=== PATIENT | female | born 1960 | race Caucasian/White ===

== ENCOUNTER → 2020-03-24 07:18 | Outpatient (CLI) | payer BC, SELFPAY ==
--- NOTE | ~2020-03-24 | XR_ITS ---
XR foot RT min 3V DATE: 03/24/2020 07:55 INDICATION: Foot pain TECHNIQUE: 4 views COMPARISON: None FINDINGS: There is mild osteoarthritis at the first metatarsophalangeal joint. Diffuse osteopenia. No fracture or dislocation, periosteal reaction or bone destruction. No erosive changes. Mild plantar calcaneal enthesopathy. IMPRESSION: Mild plantar calcaneal enthesopathy Mild osteoarthritis at the first metatarsophalangeal joint Osteopenia Reviewed, dictated and finalized at location A.
== END ==
PROVIDERS: PCP Family Medicine; Visit Provider Nurse Practitioner Family
DX: M19.071 Primary osteoarthritis, right ankle and foot (principal); M85.871 Other specified disorders of bone density and structure, right ankle and foot; M77.31 Calcaneal spur, right foot
CPT/HCPCS: 73630

== ENCOUNTER 2020-08-10 18:13 | Emergency (ER) | payer BC, SELFPAY ==
--- NOTE | ~2020-08-10 | CT_ITS ---
EXAMINATION: CT abdomen pelvis w con DATE: 08/10/2020 20:25 INDICATION: Left lower quadrant abdominal pain TECHNIQUE: Computed tomography (CT) of the abdomen and pelvis was performed with 100 mL Omnipaque-350 intravenous contrast. Automated exposure control and iterative reconstruction technique were employe d. The dose-length product was 1032.12 mGy-cm. COMPARISON: 03/14/2016 FINDINGS: Chronic mild atelectasis/scarring at the bilateral lung bases. Arch size is normal. Atherosclerotic c oronary artery calcification. No pericardial or pleural effusion. Liver, gallbladder, spleen, pancrea s, bilateral adrenal glands and kidneys are normal. Bowels including the appendix are normal. Bladder and bilateral adnexa are unremarkable. Unchanged 1.8 cm subserosal fibroid arising from the uterine fundus. No free intraperitoneal gas or fluid. Significant decrease in size of the previously enlarged abdominal and pelvic lymph nodes. The largest remaining lymph node is seen along the right common il iac chain measuring 1.5 x 1.1 cm whereas previously it measured 2.6 x 1.9 cm. No other pathologically enlarged abdominal or pelvic lymphadenopathy. Mild thoracic spondylosis. Stable appearance of chroni c mild anterior wedging at T12 and L1. IMPRESSION: 1. No acute intra-abdominal/pelvic process. 2. Unchanged 1.8 cm uterine fibroid. 3. Interval decrease in prior abdominal and pelvic lymphadenopathy likely representing response to tr eatment of sarcoidosis. Reviewed, dictated and finalized at location A. OPERATOR IMPRESSION: 1. No acute intra-abdominal/pelvic process. 2. Unchanged 1.8 cm uterine fibroid. 3. Interval decrease in prior abdominal and pelvic lymphadenopathy likely repre senting response to treatment of sarcoidosis.
[2020-08-10 18:15] VITALS: BP 132/78; PULSE 72; RESP 18; TEMP 36; O2SAT 99
[2020-08-10 19:00] LABS: Basophils Absolute Auto 0.1 K/mm3 (0.0-0.1); Basophils Percent Auto 0.8 % (0.2-1.2); Eosinophils Absolute Auto 0.1 K/mm3 (0-0.3); Eosinophils Percent Auto 1.1 % (0-4.4); Hematocrit 38.9 % (37.0-47.0); Hemoglobin 12.7 g/dL (12.0-15.0); Immature Granulocyte Absolute 0.02 K/mm3 (0.00-0.031); Immature Granulocyte Percent A 0.3 % (0-0.5); Lymphocytes Absolute Auto 0.88 K/mm3 (0.9-3.2); Lymphocytes Percent Auto 11.1 % (18.3-44.2); Mean Corpuscular HGB Conc 32.6 g/dl (32-36); Mean Corpuscular Hemoglobin 30.1 pg (26-34); Mean Corpuscular Volume 92.2 fl (80-100); Mean Platelet Volume 11.5 fl (7.4-10.4); Monocytes Absolute Auto 0.6 K/mm3 (0.1-0.6); Monocytes Percent Auto 7.8 % (2.6-8.5); Neutrophils Absolute Auto 6.3 K/mm3 (1.3-6.7); Neutrophils Percent Auto 78.9 % (45.5-73.1); Platelet Count Result 232 k/mm3 (150-375); Red Blood Count 4.22 M/mm3 (4.2-5.4)
[2020-08-10 19:05] LABS: Add Urine Microscopic? YES; Appearance Urine Clear (Clear); Bilirubin Urine Negative (Negative); Blood Urine Negative (Negative); Color Urine Yellow (Yellow); Glucose Urine UA Negative (Negative); Ketones Urine Negative (Negative); Leukocyte Esterase Ur Trace LEU/UL (Negative); Mucus Urine Rare /lpf; Nitrate Urine Negative (Negative); Protein Urine Negative (Negative); Specific Grav Ur 1.023 (1.001-1.035); Squamous Epithelial Cell Urine Rare /hpf (Few); Urobilinogen Urine Negative mg/dL (<2.0); WBC Urine 0-3 /hpf
[2020-08-10 19:55] VITALS: BP 103/66; PULSE 70; RESP 20; O2SAT 99
[2020-08-10 20:01] LABS: D Dimer 1.12 ug/mL (<0.48)
[2020-08-10 20:01] LABS: Alanine Aminotransferase 24 U/L (4-35); Albumin Level 4.3 g/dL (3.5-5.1); Alkaline Phosphatase 64 U/L (38-126); Anion Gap 6 mmol/L (8-16); Aspartate Amino Transferase 36 U/L (14-36); Bilirubin,Total 0.5 mg/dL (0.2-1.3); Blood Urea Nitrogen 18 mg/dL (7-17); Calcium 9.8 mg/dL (8.4-10.2); Carbon Dioxide 28 mmol/L (22-30); Chloride 104 mmol/L (98-107); Estimated CRCL calculation 87 ml/min; Estimated Glomerular Filt Rate > 60; Glucose 98 mg/dL (65-105); Lipase 198 U/L (23-300); Potassium 4.7 mmol/L (3.4-5.0); Sodium 138 mmol/L (137-145)
--- NOTE | 2020-08-10 21:21 | ED.ABDPAIN ---
HPI - Abdominal Pain General Chief Complaint: Abdominal Pain Stated Complaint: left sided abd pain Time Seen by Provider: 08/10/20 18:42 Source: patient Mode of arrival: ambulatory Limitations: no limitations History of Present Illness HPI narrative: 60-year-old with a history of sarcoidosis here with complaints of left lower abdominal pain on and off for past 1 week however since yesterday it has been very steady. Pain is mostly dull nagging in nature. She denies any history of nausea, vomiting or altered bowel habits. Denies blood in the urine or in the stool. She also complains of left calf pain. Patient was seen earlier by her primary doctor and was later referred to the ER. MD elicited complaint: abdominal pain Pertinent past history: none Onset (ago): week(s) (1) Pain Consistency: constant Location: LLQ Severity: moderate Quality: aching Radiation: LLQ Migration to: no migration Exacerbating factors: nothing Relieving factors: nothing Related Data Home Medications Medication Instructions Recorded Confirmed azathioprine 08/10/20 prednisone 5 mg tablet 5 mg PO DAILY 08/10/20 08/10/20 Allergies Allergy/AdvReac Type Severity Reaction Status Date / Time Sulfa (Sulfonamide Allergy Unknown Rash Verified 08/10/20 18:38 Antibiotics) Review of Systems Review of Systems: All systems reviewed & are unremarkable except as noted in HPI and below Constitutional: Constitutional: Reports no additional constitutional complaints Eyes: Eyes: Reports no additional eye complaints ENT: Reports system reviewed and no additional complaints, except as documented Cardiovascular: Cardiovascular: Reports no additional cardiovascular complaints Respiratory: Respiratory: Reports no additional respiratory complaints Gastrointestinal: Gastrointestinal: Reports as per HPI Musculoskeletal: Musculoskeletal: Reports other (Left leg pain) PMFSH Past Medical History Medical History BMI 36.0-36.9,adult Family History Family History Father Hypertension Mother Family history of lung cancer Daughter No problems noted. Son No problems noted. Other Family history of throat cancer Social History Social History Smoking status: Never smoker Alcohol intake: current Gender identity (if verbalized by the patient): Male Exam Narrative: Exam Narrative: GENERAL: Well-appearing, well-nourished, and in no acute distress. HEAD: Normocephalic, atraumatic. EYES: PERRLA and EOMI. NECK: Supple. CHEST: Clear to auscultation. No respiratory distress. HEART: Regular rate and rhythm. No murmur heard. Normal peripheral pulses. ABDOMEN: Soft, mild tenderness in the LLQ, nondistended, normal active bowel sounds. EXTREMITIES: Normal range of motion. mild edema of the left calf , no redness mild tenderness on palaption SKIN: Warm, dry, no rash. NEURO: No focal deficits. Alert and oriented x3. PSYCH: Normal mood and affect. Course Course Emergency Course: Inform patient about her lab work, CT findings advised her to return to the radiology department in the morning for a venous Doppler. Meanwhile I will give her Lovenox as DVT prophylaxis. Vital Signs Vital signs: Vital Signs Temperature 36.0 C L 08/10/20 18:15 Pulse Rate 72 08/10/20 18:15 Respiratory Rate 18 08/10/20 18:15 Blood Pressure 132/78 08/10/20 18:15 Pulse Oximetry 99 08/10/20 18:15 Temperature 36.0 C L 08/10/20 18:15 Pulse Rate 70 08/10/20 19:55 Respiratory Rate 20 08/10/20 19:55 Blood Pressure 103/66 08/10/20 19:55 Pulse Oximetry 99 08/10/20 19:55 MDM - Abdominal Pain Lab Data Result diagrams: 08/10/20 18:52 08/10/20 19:12 Labs: Lab Results 08/10/20 08/10/20 08/10/20 Range/Units 18:52 18:52 19:12 WBC
[2020-08-10 21:46] VITALS: BP 112/49; PULSE 80; RESP 19; O2SAT 98
== END 2020-08-10 21:48 | disposition home or self-care (01) ==
PROVIDERS: Emergency Medicine; Emergency Provider Family Medicine; PCP Family Medicine
DX: R10.824 Left lower quadrant rebound abdominal tenderness (principal); R60.0 Localized edema; D25.9 Leiomyoma of uterus, unspecified
CPT/HCPCS: 36415; 74177; 80053; 81001; 83690; 85025; 85380; 96372; 99284; Q9967

== ENCOUNTER 2020-08-11 15:28 | Outpatient (CLI) | payer BC, SELFPAY ==
--- NOTE | ~2020-08-11 | US_ITS ---
EXAMINATION: US venous doppler [facility] DATE: 08/11/2020 16:19 INDICATION: Left lower limb pain TECHNIQUE: Grayscale ultrasound images without and with compression and Doppler ultrasound images of the bilateral lower extremity veins were obtained. COMPARISON: None. FINDINGS: The visualized portions of right common femoral vein, profunda (deep) femoral vein, femoral vein, pop liteal vein, posterior tibial veins, peroneal veins, gastrocnemius vein and greater saphenous vein ou tflow are patent. The visualized portions of left common femoral vein, profunda femoral vein, femoral vein, popliteal v ein, posterior tibial veins, peroneal veins, gastrocnemius vein and greater saphenous vein outflow ar e patent. IMPRESSION: 1. No deep venous thrombosis in either lower limb. Reviewed, dictated and finalized at location A. N LABEL DESIGNER
== END 2020-08-11 15:29 | disposition home or self-care (01) ==
LOC: ANHIMG 15:30
PROVIDERS: PCP Family Medicine; Visit Provider Nurse Practitioner Family
DX: R60.0 Localized edema (principal)
CPT/HCPCS: 93970

== ENCOUNTER 2020-08-17 07:09 | Outpatient (CLI) | payer BC, SELFPAY ==
[2020-08-17 07:51] LABS: Cholesterol 189 mg/dL (0-200); HDL Direct 69 mg/dL; Triglycerides 69 mg/dL (<150)
[2020-08-17 08:01] LABS: LDL Cholesterol Direct 94 mg/dL
[2020-08-17 08:52] LABS: Vitamin D 25 Hydroxy 48.5 ng/mL
== END 2020-08-17 07:10 | disposition home or self-care (01) ==
LOC: ANHLAB 07:12
PROVIDERS: PCP Family Medicine; Visit Provider Nurse Practitioner Family
DX: R53.83 Other fatigue (principal); Z13.220 Encounter for screening for lipoid disorders; Z13.29 Encounter for screening for other suspected endocrine disorder
CPT/HCPCS: 36415; 80061; 82306; 84443

== ENCOUNTER 2021-02-07 15:58 | Outpatient (CLI) | payer BC, SELFPAY ==
--- NOTE | ~2021-02-07 | US_ITS ---
US venous doppler [facility] DATE: 02/07/2021 16:46 INDICATION: Knot and pain of lower extremity TECHNIQUE: Real-time and color flow imaging and Doppler analysis of the veins of the lower extremitie s COMPARISON: 08/11/2020 venous duplex examination of the lower extremities FINDINGS: There is spontaneous and phasic flow and normal augmentation and color flow signal and norm al compression of the deep veins of both lower extremities. IMPRESSION: No evidence of deep venous thrombosis of the lower extremities Reviewed, dictated and finalized at Location A. Reviewed, dictated and finalized at location A.
== END 2021-02-07 15:59 | disposition home or self-care (01) ==
LOC: ANHIMG 15:59
PROVIDERS: PCP Family Medicine; Visit Provider Nurse Practitioner Family
DX: M79.89 Other specified soft tissue disorders (principal); M79.605 Pain in left leg
CPT/HCPCS: 93970

== ENCOUNTER → 2021-05-19 10:13 | Outpatient (CLI) | payer BC, SELFPAY ==
--- NOTE | ~2021-05-19 | US_ITS ---
US soft tissue LE RT, US soft tissue LE LT 05/19/2021 10:31 Indication: Localized swelling in both lower extremities for 6 months. Lower extremity pain. Procedure: High-resolution ultrasound of the lower extremities bilaterally including the right medial distal lower leg and the left medial distal lower leg in the area of palpable concern. Color flow an alysis performed. Comparison: Venous ultrasound dated 02/07/2021. Findings: In the area of palpable concern bilaterally there are varicose veins which compress. All ve ins demonstrate normal flow. No discrete extravascular mass or fluid collection is identified. Impression: 1: Bilateral compressible varicose veins in the area of palpable concern. No discrete mass is identif ied. Reviewed, dictated and finalized at location A. Impression: 1: Bilateral compressible varicose veins in the area of palpable concern. No di screte mass is identified. Impression: 1: Bilateral compressible varicose veins in the area of palpable concern. No di screte mass is identified.
== END ==
PROVIDERS: PCP Family Medicine; Visit Provider Nurse Practitioner Family
DX: M79.662 Pain in left lower leg (principal); M79.661 Pain in right lower leg; I83.93 Asymptomatic varicose veins of bilateral lower extremities
CPT/HCPCS: 76882

== ENCOUNTER 2021-12-10 01:54 | Day surgery (SDC) | payer BC, SELFPAY ==
[2021-12-04 15:50] VITALS: BMI 35.2
[2021-12-10 08:56] VITALS: BP 126/75; PULSE 84; RESP 16; TEMP 36.5; O2SAT 97
[2021-12-10] MEDS: LACTATED RINGERS 1,000 ML 150 ML IV CONT (09:05)
--- NOTE | 2021-12-10 09:22 | P.PNAN_ITS ---
Anes - Initial Pre Proc Eval Procedure: Operation Date: 12/10/21 10:00 Proposed Procedures p Screening Colonoscopy - Isra Salguero MD Date/Time: 12/10/21 09:22 Surgeon: Irsa Salguero MD Pre Op Diagnosis: neoplasm screening Patient Data Age: 61 Gender: F Height: 1.56 m Weight: 84.3 kg Last Vital Signs Temp 97.7 F 12/10/21 08:56 Pulse 84 12/10/21 08:56 Resp 16 12/10/21 08:56 BP 126/75 12/10/21 08:56 Pulse Ox 97 12/10/21 08:56 Allergies Allergy/AdvReac Type Severity Reaction Status Date / Time Sulfa (Sulfonamide Allergy Intermediate Rash Verified 12/10/21 08:55 Antibiotics) Home Medications Medication Instructions Recorded Confirmed Type azathioprine 50 mg PO QAM 08/10/20 12/10/21 History prednisone 5 mg tablet 2.5 mg PO EVERY OTHER DAY tablet 02/07/21 12/10/21 History ibandronate 150 mg tablet 150 mg PO MONTHLY #3 tablet 10/02/21 12/10/21 Rx Adults Multivitamin 1 tab-cap PO DAILY 12/04/21 12/10/21 History aspirin [Adult Low Dose Aspirin] 162 mg PO QNOON 12/04/21 12/10/21 History azathioprine 100 mg PO HS 12/04/21 12/10/21 History cholecalciferol (vitamin D3) 50 mcg PO DAILY 12/04/21 12/10/21 History [Vitamin D3] vitamin B complex [B Complex] 1 cap PO DAILY 12/04/21 12/10/21 History Patient hx anesthesia problems: none Family hx anesthesia problems: none Results Review: All pre-operative results and documents have been reviewed as part of the pre-operative evaluation. [facility] Past Medical History Medical History BMI 36.0-36.9,adult Low flow in portal vein determined by Doppler ultrasound Family History Family History Father Hypertension Mother Family history of lung cancer Daughter No problems noted. Son No problems noted. Sibling No problems noted. Other Family history of throat cancer Social History Social History Smoking status: Never smoker Tobacco type: cigarettes Second hand tobacco smoke exposure: Yes Alcohol intake: current Substance use: never Substance use type: does not use Living arrangements: with family Additional occupation/education comments: [employer] Gender identity (if verbalized by the patient): Male Spiritual care concerns: No Anes - Eval Final PreProcedure Day of Procedure 12/10/21 09:22 Patient weight: obese Heart: regular rate and rhythm Lungs: clear to auscultation Airway: Mallampati scale class II Neurological: alert and oriented Last oral intake: >/= 8 hours ASA classification: III Emergent: no Anesthetic plan: proceed Anesthesia type and monitoring: general GIVS and standard monitoring Results Review: All pre-operative results and documents have been reviewed as part of the pre-operative evaluation. Informed Consent: The patient's anesthetic plan and its attendant risks and benefits were discussed with the patient/family/POA. Questions were solicited and answers provided to the satisfaction of the patient/family/POA.
--- NOTE | 2021-12-10 09:33 | PM.HPGS ---
History of Present Illness History of Present Illness Consent: Risks, benefits, and alternatives have been discussed and questions answered. Patient agrees to proceed with procedure. Chief complaint: neoplasm screening Narrative: Amy Zuñiga is a 61 year old female here for screening colonoscopy Review of Systems Constitutional: Constitutional: Denies headache(s) and Denies weakness Eyes: Eyes: Denies blurry vision ENT: Reports Normal hearing present, Denies headache(s) and Denies neck pain Cardiovascular: Cardiovascular: Denies chest pain and Denies dyspnea Respiratory: Respiratory: Denies dyspnea Gastrointestinal: Gastrointestinal: Reports no additional gastrointestinal complaints Genitourinary: Genitourinary: Denies dysuria Musculoskeletal: Musculoskeletal: Denies neck pain Integumentary/Breasts: Skin/Breast: Denies dry skin Neurologic: Reports Normal hearing present, Denies headache(s) and Denies weakness Psychiatric: Psychiatric: Denies anxiety Endocrine: Endocrine: Denies change in body appearance Hematologic/Lymphatic: Hematologic/Lymphatic: Denies easy bleeding Allergic/Immunologic: Allergic/Immunologic: Denies urticaria PMFSH Past Medical History Medical History BMI 36.0-36.9,adult Low flow in portal vein determined by Doppler ultrasound Family History Family History Father Hypertension Mother Family history of lung cancer Daughter No problems noted. Son No problems noted. Sibling No problems noted. Other Family history of throat cancer Social History Social History Smoking status: Never smoker Tobacco type: cigarettes Second hand tobacco smoke exposure: Yes Alcohol intake: current Substance use: never Substance use type: does not use Living arrangements: with family Additional occupation/education comments: [employer] Gender identity (if verbalized by the patient): Male Spiritual care concerns: No Meds Home Medications and Allergies Home Medications Medication Instructions Recorded Confirmed Type azathioprine 50 mg PO QAM 08/10/20 12/10/21 History prednisone 5 mg tablet 2.5 mg PO EVERY OTHER DAY tablet 02/07/21 12/10/21 History ibandronate 150 mg tablet 150 mg PO MONTHLY #3 tablet 10/02/21 12/10/21 Rx Adults Multivitamin 1 tab-cap PO DAILY 12/04/21 12/10/21 History aspirin [Adult Low Dose Aspirin] 162 mg PO QNOON 12/04/21 12/10/21 History azathioprine 100 mg PO HS 12/04/21 12/10/21 History cholecalciferol (vitamin D3) 50 mcg PO DAILY 12/04/21 12/10/21 History [Vitamin D3] vitamin B complex [B Complex] 1 cap PO DAILY 12/04/21 12/10/21 History Allergies Allergy/AdvReac Type Severity Reaction Status Date / Time Sulfa (Sulfonamide Allergy Intermediate Rash Verified 12/10/21 08:55 Antibiotics) Vital Signs Vital Signs - 24 hr 12/10/21 08:56 Temperature 97.7 F Pulse Rate 84 Respiratory Rate 16 Blood Pressure 126/75 Pulse Oximetry 97 Exam Const: General: comfortable and no acute distress HENMT: General nose exam: Normal nares present Eyes: General: appearance normal, both eyes and all related structures Neck: Neck: no JVD Resp: Auscultation: clear to auscultation bilaterally Cardio: Rate: regular rate Rhythm: regular rhythm GI: Inspection: non-distended GI Palp: Yes Soft to palpation Skin: General skin exam: normal color Neuro: General: gait normal Speech: normal speech Extrem: General: normal to inspection Psych: Mental Status: mental status grossly normal Assessment and Plan Assessment and plan (1) Screening for malignant neoplasm of colon: Code(s): Z12.11 - Encounter for screening for malignant neoplasm of colon Status: Acute Assessment and Plan: colonoscopy
[2021-12-10 09:48] VITALS: BP 110/66; PULSE 76; RESP 18; O2SAT 97
[2021-12-10 09:58] VITALS: BP 113/50; PULSE 80; RESP 18; O2SAT 98
[2021-12-10 10:08] VITALS: BP 125/65; PULSE 78; RESP 20; O2SAT 99
== END 2021-12-10 10:22 | disposition home or self-care (01) ==
PROVIDERS: PCP Family Medicine; Visit Provider Internal Medicine Gastroenterology
PROC: 0DJD8ZZ Inspection of Lower Intestinal Tract, Via Natural or Artificial Opening Endoscopic (ICD-10-PCS; CPT 45378; principal; 2021-12-10 10:00)
DX: Z12.11 Encounter for screening for malignant neoplasm of colon (principal); D12.0 Benign neoplasm of cecum; K64.8 Other hemorrhoids; Z79.82 Long term (current) use of aspirin; E66.9 Obesity, unspecified; Z68.34 Body mass index [BMI] 34.0-34.9, adult
CPT/HCPCS: 45385; 88305; J2704; J7120

== ENCOUNTER → 2021-12-15 10:04 | Outpatient (CLI) | payer BC, SELFPAY ==
--- NOTE | ~2021-12-15 | DEXA_ITS ---
Bone Density Report Name: ESTEFANI RUDOLPH Age: 61 Sex: Female Ethnicity: White Date of : 1960 Indication: postmenopausal; screening for osteoporosis; history of glucocorticoids; Referring Provider: González Cummings Study: Bone densitometry was performed. Exam Date: December 15, 2021 Accession number: [id number] Bone Density: Region BMD T-score Z-score Classification AP Spine (L1-L4) 0.776 -2.5 -0.8 Osteoporosis Femoral Neck (Left) 0.736 -1.0 0.4 Normal Total Hip (Left) 0.912 -0.2 0.9 Normal Femoral Neck (Right) 0.657 -1.7 -0.3 Osteopenia Total Hip (Right) 0.860 -0.7 0.5 Normal Total Hip Mean 0.886 -0.5 0.7 Normal World Health Organization criteria for BMD impression classify patients as: Normal (T-score at or above -1.0), Osteopenia (T-score between -1.0 and -2.5), or Osteoporosis (T-score at or below -2.5). 10-year Fracture Risk: FRAX not reported because: Some T-score for Spine Total or Hip Total or Femoral Neck at or below -2.5 Treated for osteoporosis Clinical Information Provided by Patient: Has taken Glucocorticoids Is being treated for osteoporosis Has used the following medications: Boniva (i.e. ibandronate), Vitamin D, Calcium Patient maximum height was 62 Menopause Age: 38 No regular weight bearing exercise Onset of menses at age 8 Number of children 2 Impression: The patient has osteoporosis, based on the Total Spine T-score. The patient has risk factors, including: history of glucocorticoid therapy. Discussion: It is important to ask patients whether they are taking their medications and to encourage continued and appropriate compliance with their osteoporosis therapies to reduce fracture risk. It is also important to review their risk factors and encourage appropriate calcium and vitamin D intakes, exercise, fall prevention and other lifestyle measures. Follow-Up: Consider a repeat BMD and Vertebral Fracture Assessment (VFA) exam in 2 years or sooner if medically necessary, to reassess this patient's status. Reported by: TERESA on 12/15/2021 10:33:00 AM. Reviewed, dictated and finalized at location [facility] VALENZUELA
== END ==
PROVIDERS: PCP Family Medicine; Visit Provider Nurse Practitioner Family
DX: M81.0 Age-related osteoporosis without current pathological fracture (principal); M85.851 Other specified disorders of bone density and structure, right thigh
CPT/HCPCS: 77080

== ENCOUNTER 2022-03-19 09:39 | Outpatient (CLI) | payer BC, SELFPAY ==
--- NOTE | 2022-03-19 11:00 | NEURO_ITS ---
Impression: # Complains of numbness of hands. # Subtle evolving Carpal Tunnel Syndrome; not enough to make the diagnosis. # No ulnar neuropathy. # Normal needle/EMG exam. Nerve Conduction Studies Anti Sensory Summary Table Stim Site NR Peak (ms) P-T Amp (?V) Site1 Site2 Delta-P (ms) Dist (cm) Johnathon (m/s) Left Median Anti Sensory (2-3nd Digit) Wrist 3.7 25.7 Wrist 2-3nd Digit 3.7 14.0 38 Wrist 3.7 19.6 Wrist 2-3nd Digit 3.7 14.0 38 Right Median Anti Sensory (2-3nd Digit) Wrist 2.7 51.0 Wrist 2-3nd Digit 2.7 14.0 52 Wrist 2.8 60.2 Wrist 2-3nd Digit 2.7 14.0 52 Left Radial Anti Sensory (Base 1st Digit) Wrist 1.6 23.5 Wrist Base 1st Digit 1.6 0.0 Right Radial Anti Sensory (Base 1st Digit) Wrist 2.0 14.9 Wrist Base 1st Digit 2.0 0.0 Left Ulnar Anti Sensory (5th Digit) Wrist 2.4 14.9 Wrist 5th Digit 2.4 14.0 58 Right Ulnar Anti Sensory (5th Digit) Wrist 2.1 36.9 Wrist 5th Digit 2.1 14.0 67 Motor Summary Table Stim Site NR Onset (ms) O-P Amp (mV) Site1 Site2 Delta-0 (ms) Dist (cm) Johnathon (m/s) Left Median Motor (Abd Poll Brev) Wrist 3.2 2.1 Elbow Wrist 7.9 26.0 33 Elbow 11.1 1.1 Right Median Motor (Abd Poll Brev) Wrist 3.1 6.0 Elbow Wrist 4.7 27.0 57 Elbow 7.8 3.6 Left Ulnar Motor (Abd Dig Minimi) Wrist 2.1 6.9 A Elbow Wrist 4.5 26.0 58 A Elbow 6.6 5.6 Right Ulnar Motor (Abd Dig Minimi) Wrist 2.0 5.5 A Elbow Wrist 4.6 27.0 59 A Elbow 6.6 5.1 F Wave Studies NR F-Lat (ms) L-R F-Lat (ms) Left Median (Mrkrs) (Abd Poll Brev) 26.90 1.40 Right Median (Mrkrs) (Abd Poll Brev) 25.50 1.40 Left Ulnar (Mrkrs) (Abd Dig Min) 25.53 0.67 Right Ulnar (Mrkrs) (Abd Dig Min) 26.20 0.67 EMG Side Muscle Nerve Root Ins Act Fibs Amp Dur Recrt Comment Right 1stDorInt Ulnar C8-T1 Nml Nml Nml Nml Nml Right Ext Indicis Radial (Post Int) C7-8 Nml Nml Nml Nml Nml Right Ext Digitorum Radial (Post Int) C7-8 Nml Nml Nml Nml Nml Right BrachioRad Radial C5-6 Nml Nml Nml Nml Nml Right PronatorTeres Median C6-7 Nml Nml Nml Nml Nml Right Abd Poll Brev Median C8-T1 Nml Nml Nml Nml Nml Left 1stDorInt Ulnar C8-T1 Nml Nml Nml Nml Nml Left Ext Indicis Radial (Post Int) C7-8 Nml Nml Nml Nml Nml Left Ext Digitorum Radial (Post Int) C7-8 Nml Nml Nml Nml Nml Left BrachioRad Radial C5-6 Nml Nml Nml Nml Nml Left PronatorTeres Median C6-7 Nml Nml Nml Nml Nml Left Abd Poll Brev Median C8-T1 Nml Nml Nml Nml Nml MTDD
== END 2022-03-19 09:40 | disposition home or self-care (01) ==
LOC: ANHNEURO 09:40
PROVIDERS: PCP Family Medicine; Visit Provider Nurse Practitioner Family
DX: R20.2 Paresthesia of skin (principal)
CPT/HCPCS: 95886; 95911

== ENCOUNTER → 2022-04-02 17:16 | Outpatient (CLI) | payer BC, SELFPAY ==
--- NOTE | ~2022-04-02 | XR_ITS ---
EXAM: XR knee LT 2V DATE: 04/02/2022 17:35 HISTORY: M25.569 - Pain in unspecified knee . COMPARISON: None available. FINDINGS: Normal mineralization. No fracture or dislocation. No lytic or blastic lesion. Mild medial joint space narrowing, mild tricompartmental osteophytosis. No erosion or periosteal change. Soft ti ssues within normal limits. IMPRESSION: Mild tricompartmental left knee osteoarthritis. Reviewed, dictated and finalized at location K.
--- NOTE | ~2022-04-02 | XR_ITS ---
EXAM: XR lumbar spine 2-3V DATE: 04/02/2022 17:35 HISTORY: M54.50 - Low back pain, unspecified . COMPARISON: None available. FINDINGS: 5 nonrib-bearing lumbar-type vertebral bodies. Pedicles intact. Normal vertebral body alig nment, with exaggeration of the lumbar lordosis. Vertebral body heights preserved. Mild disc space na rrowing and marginal osteophytosis at L4-5. Mild marginal osteophytosis at L3-4 and L5-S1. Lower lumb ar facet sclerosis. No fracture or dislocation. IMPRESSION: Mild multilevel degenerative disc disease. Mild lower lumbar facet arthropathy. Reviewed, dictated and finalized at location K.
== END ==
PROVIDERS: PCP Nurse Practitioner Family; Visit Provider Nurse Practitioner Family
DX: M51.36 Other intervertebral disc degeneration, lumbar region (principal); M17.12 Unilateral primary osteoarthritis, left knee
CPT/HCPCS: 72100; 73560

== ENCOUNTER → 2022-04-27 10:53 | Outpatient (CLI) | payer BC, SELFPAY ==
--- NOTE | ~2022-04-27 | MR_ITS ---
EXAMINATION: MR knee LT wo con DATE: 04/27/2022 11:40 INDICATION: Generalized left knee pain, no trauma TECHNIQUE: Magnetic resonance imaging (MRI) of the left field, knee was performed without intravenous contrast. Sequences included axial PD-weighted FS FSE, coronal PD-weighted FSE and PD-weighted FS FS E, sagittal PD-weighted FSE, and sagittal T2-weighted FS FSE. COMPARISON: X-ray left knee 04/02/2022. FINDINGS: Medial compartment: Meniscus intact, with mild degenerative changes. Moderate diffuse cartilage thinning and mild osteoph ytosis. Lateral compartment: Meniscus intact. Mild diffuse cartilage thinning and osteophytosis. Patellofemoral compartment: Mild cartilage thinning. Retinacula intact. Ligaments and tendons: ACL, PCL, MCL, and LCL are intact. Flexor and extensor tendons are intact. Mild abnormal signal track ing superficial and deep to the IT band. Fluid: Moderate volume joint fluid. Small Sanders's cyst. Osseous/other: No suspicious focal or diffuse marrow signal. Mild focal subchondral marrow edema on the medial condy le. IMPRESSION: 1. Mild edema about the IT band, may reflect IT band syndrome in the appropriate clinical context. 2. Moderate volume joint effusion. 3. Osteoarthritic changes, moderate in the medial compartment. Reviewed, dictated and finalized at location K. IMPRESSION: 1. Mild edema about the IT band, may reflect IT band syndrome in the appropriat e clinical context. 2. Moderate volume joint effusion. 3. Osteoarthritic changes, moderate in the medial compartment.
== END ==
PROVIDERS: PCP Family Medicine; Visit Provider Nurse Practitioner Family
DX: M25.462 Effusion, left knee (principal); M17.12 Unilateral primary osteoarthritis, left knee
CPT/HCPCS: 73721

== ENCOUNTER 2023-04-18 12:44 | Outpatient (CLI) | payer BC, SELFPAY ==
--- NOTE | 2023-04-18 | ECG_ITS ---
Measurements Intervals [place] Rate: 69 P: 59 NH: 199 QRS: 1 QRSD: 83 T: 10 QT: 382 QTc: 410 Interpretive Statements SINUS RHYTHM LOW QRS VOLTAGE IN PRECORDIAL LEADS [QRS DEFLECTION < 1.0 mV IN CHEST LEADS] NO PREVIOUS ECG AVAILABLE FOR COMPARISON Electronically Signed On 04-18-2023 14:29:59 CDT by Norma Mathews M.D.
[2023-04-18 13:20] LABS: Hematocrit 36.6 % (37.0-47.0); Hemoglobin 11.9 g/dL (12.0-15.0); Mean Corpuscular HGB Conc 32.5 g/dl (32-36); Mean Corpuscular Hemoglobin 29.8 pg (26-34); Mean Corpuscular Volume 91.7 fl (80-100); Platelet Count Result 181 k/mm3 (150-375); Red Blood Count 3.99 M/mm3 (4.2-5.4); Red Cell Distribution Width 13.5 % (11.5-14.5); White Blood Count 4.9 K/mm3 (4.5-10.0)
[2023-04-18 13:36] LABS: Anion Gap 5 mmol/L (8-16); Blood Urea Nitrogen 21 mg/dL (7-17); Calcium 9.1 mg/dL (8.4-10.2); Carbon Dioxide 28 mmol/L (22-30); Chloride 103 mmol/L (98-107); Estimated Glomerular Filt Rate > 60; Glucose 113 mg/dL (65-110); Sodium 136 mmol/L (137-145)
== END 2023-04-18 12:45 | disposition home or self-care (01) ==
PROVIDERS: PCP Family Medicine
DX: G56.22 Lesion of ulnar nerve, left upper limb (principal)
CPT/HCPCS: 36415; 80048; 85027; 93005

== ENCOUNTER → 2023-06-17 10:03 | Outpatient (CLI) | payer BC, SELFPAY ==
--- NOTE | ~2023-06-17 | XR_ITS ---
Left foot Technique: AP, oblique, and lateral views were obtained. Clinical History: Pain and swelling Findings: Questionable age-indeterminate fracture at the plantar aspect of the base of the fifth prox imal phalanx. There is probable mild soft tissue swelling at the lateral aspect of the foot at the fth MTP joint region. Joint spaces are preserved without erosive or degenerative change. Impression: Questionable age-indeterminate fracture at the plantar aspect of the base of the fifth proximal phala nx. Correlate for point tenderness. Soft tissue swelling laterally at the fifth MTP joint region, nonspecific. Reviewed, dictated and finalized at location . Impression: Questionable age-indeterminate fracture at the plantar aspect of the base of th e fifth proximal phalanx. Correlate for point tenderness. Soft tissue swelling laterally at the fifth MTP joint region, nonspecific.
--- NOTE | ~2023-06-17 | XR_ITS ---
AP and lateral views of the left tibia/fibula Clinical History: Pain Findings: No acute fracture or dislocation is seen. Osseous alignment is anatomic. Joint spaces are p reserved without significant erosive or degenerative change. Soft tissue calcification suggest chroni c venous stasis. Impression: No osseous or articular abnormality. Scattered soft tissue calcifications are likely related to chronic venous stasis. Reviewed, dictated and finalized at [facility]. Impression: No osseous or articular abnormality. Scattered soft tissue calcifications are likely related to chronic venous stasi s.
== END ==
PROVIDERS: PCP Nurse Practitioner; Visit Provider Nurse Practitioner
DX: M79.672 Pain in left foot (principal); M79.662 Pain in left lower leg; M79.89 Other specified soft tissue disorders
CPT/HCPCS: 73590; 73630

== ENCOUNTER 2024-09-16 14:21 | Outpatient (CLI) | payer MEDICARE, SELFPAY ==
--- NOTE | ~2024-09-16 | DEXA_ITS ---
Bone Density Report Name: ESTEFANI RUDOLPH Age: 64 Sex: Female Ethnicity: White Date of : 1960 Indication: postmenopausal; screening for osteoporosis; Referring Provider: ROWDY COULTER Study: Bone densitometry was performed. Exam Date: September 16, 2024 Accession number: [id number] Bone Density: Region BMD T-score Z-score Classification AP Spine(L1-L4) 0.774 -2.5 -0.6 Osteoporosis Femoral Neck (Left) 0.690 -1.4 0.1 Osteopenia Total Hip (Left) 0.870 -0.6 0.7 Normal Femoral Neck (Right) 0.693 -1.4 0.2 Osteopenia Total Hip (Right) 0.803 -1.1 0.1 Osteopenia Total Hip Mean 0.837 -0.9 0.4 Normal World Health Organization criteria for BMD impression classify patients as: Normal (T-score at or above -1.0), Osteopenia (T-score between -1.0 and -2.5), or Osteoporosis (T-score at or below -2.5). 10-year Fracture Risk: FRAX not reported because: Some T-score for Spine Total or Hip Total or Femoral Neck at or below -2.5 Clinical Information Provided by Patient: Has used the following medications: Boniva (i.e. ibandronate), Vitamin D, Calcium Patient maximum height was 62.0 No regular weight bearing exercise Onset of menses at age 8 Number of children 2 Impression: The patient has osteoporosis, based on the Total Spine T-score. Discussion: INCREASED RISK OF FRACTURE. BONE DENSITY IS UNDESIRABLY LOW AT ONE OR MORE SKELETAL SITES, CONSISTENT WITH POSTMENOPAUSAL OSTEOPOROSIS. This patient's lowest T-score meets the World Health Organization's (WHO) criteria for osteoporosis at one or more sites (T-score -2.5 or below). In untreated patients, the risk of osteoporotic fracture increases approximately two-fold for each 1.0 SD decrease in T-score. Low bone density is not the only risk factor for fracture; also consider factors such as patient's age, frailty or poor health, risk of falling, risk of injury, previous osteoporotic fracture, family history of osteoporosis, cigarette smoking, low body weight, etc. Not everyone with low bone mineral density has osteoporosis; osteomalacia and other metabolic bone disorders should also be considered. Patients who have osteoporosis should be evaluated for specific diseases and conditions (secondary causes) that may cause or contribute to bone loss. The [place] [employer] (AACE) and National Osteoporosis Foundation (NOF) recommend pharmacologic intervention for all postmenopausal women whose T-score is in this range. The patient should follow a healthful lifestyle (good nutrition with adequate calcium and vitamin D, and appropriate weight-bearing exercise). Follow-Up: Consider a repeat BMD and Vertebral Fracture Assessment (VFA) exam in 2 years or sooner if medically necessary, to reassess this patient's status. Reported by: MARGOT on 09/16/2024 3:03:00 PM. Reviewed, dictated and finalized at location [facility]
== END 2024-09-16 14:22 | disposition home or self-care (01) ==
LOC: ANHIMG 14:22
PROVIDERS: PCP Family Medicine; Visit Provider Nurse Practitioner
DX: M85.88 Other specified disorders of bone density and structure, other site (principal); M81.0 Age-related osteoporosis without current pathological fracture; M85.852 Other specified disorders of bone density and structure, left thigh; M85.851 Other specified disorders of bone density and structure, right thigh
CPT/HCPCS: 77080

== ENCOUNTER 2024-11-26 11:17 | Outpatient (CLI) | payer MEDICARE, SELFPAY ==
--- OUTSIDE RECORDS SUMMARY | 2024-11-26 12:34 | XMS_ITS | Data Portability ---
Author Organization [facility] [place] Address [address] [place] [address] Care Team Providers Care Fundraising Manager Name Role Phone PHUONG KEATING Primary Care Provider Assessment Encounter Date Assessment Date Assessment LastModified by Organization Details LastModified Time 07/21/2020 07/21/2020 Annual gynecological exam performed. Patient will come back in a year unless there are new symptoms. [email or web address] Not available 07/21/2020 16:02:17 06/25/2021 06/25/2021 Annual gynecological exam performed. Patient will come back in a year unless there are new symptoms. Not available 06/25/2021 12:26:16 08/17/2022 08/17/2022 Annual gynecological exam performed. Patient will come back in a year unless there are new symptoms. [email or web address] Not available 08/17/2022 12:10:23 08/19/2023 08/19/2023 Annual gynecological exam performed. Patient will come back in a year unless there are new symptoms. [email or web address] Not available 08/19/2023 17:34:49 Plan of Treatment Reminders Order Date Submit Date Provider Last Modified By Organization Details Last Modified Time Details Appointments WELL WOMAN- EST 025 08:30AM EMRE Centeno Not available Not available Not available Lab None record ed. Referral None record ed. Procedures None record ed. Surgeries None record ed. Imaging None record ed. Medication Orders None record ed. Patient TargetsNo targets recorded. Patient InstructionsNo instructions recorded. Reason for Referral None Reported. Results Created Date Observation Date Name Description Value Unit Range Abnormal Flag Note LastModifiedBy Organization Detail LastModifiedTime 07/21/20 20 07/25/2020 pap, LB Pap test thin prep Negati ve for Intrae pithel ial Lesion or Malign philippe normal ACCES KERLINE #: [id number] Sourc e: Cervi jayce/E ndoce rvica l LMP: 01/25 Date Taken : 07/21 Speci men Type: ThinP rep Vial Date Repor betsy: 07/25 Clini jayce Data: Cytot ech: Patrice Bauman y, CT( CP) Date Repor betsy: 07/25 Revie wed By: Jaskaran Rivera on, CT( CP) Speci men Adequ acy: Satis facto ry for evalu ation Scant cellu larit y Gener al Categ oriza tion: NEGAT JEREMIAS FOR INTRA EPITH ELIAL LESIO N OR MALIG DOROTHEA Inter preta tion/ Resul t: Atrop hy Comme nts/R ecomm endat ions: Infla mmati on This speci men has been sarah zed by the ThinP rep Imagi ng Syste m, an inter activ e compu ter syste m which igor ts the lab in the scree vasquez of ThinP rep Pap Test slide s. Hugo chicas imagi ng, the slide was revie wed by a Cytot echno logis t and/o r Patho logis t. D N A A S S A Y S R E P O R T TEST NAME RESUL TS ----- ---- ----- -- HPV High Risk Scree n (TMA) ThinP rep Vial The human papil lomav irus (HPV) High Risk Scree n is an FDA-a pprov ed in-vi tro ampli fied nucle ic acid test for the quali tativ e detec tion of E6/E7 viral mRNA. Resul ts lihsa jenkins be corre lated with patipollo nt prese ntati on, histo ry, cervi jayce cytol ogy and other clini jayce and labor atory findi ngs. See https ://joanne walkerDynamics/s ites/ josé luis lt/fi les/2 018-0 3/AW- [id number] _002_ 01.pd f for furcastro er infor matbee n. Test perfo rmed by [facility] iated [facility] [employer], d/b/a Path[employer]id roushabana, [address] [facility], [place] [address] , Aleta Mitchell ra, DO, Labor atory Dire tor. HPV High Risk *HPV NOT DETEC BETSY (TYPE S 16, 18, 31, 33, 35, 39, 45, 51, 52, 56, 58, 59, 66, 68) *HPV: The human papil lomav irus (HPV) High Risk Shaka corrales is an FDA-a pprov ed in-vi tro ampli fied nucle ic acid test for the quali tativ e detec tion of E6/E7 viral mRNA. Resul ts shoneha d be corre lated with john paul agustin prese ntati on, histo ry, cervi jayce cytol ogy and other clini jayce and labor atory findi ngs. See https ://Akatsuki/s janett/ defsarah lt/fi les/2 018-0 3/AW- 55713 _002_ 01.pd f for [facility] corinna corrales. Test perfo rmed by [employer] i[employer] [facility], d/b/a Path[employer]id roup, [address] , [place] [address] , Aleta Mitchell ra, , Labor atory Dire tor. End of Repor t Techn ical servi amilcar provi ded by [facility] [employer], d/b/a Crystal jimenez, [address] [place] [address] Sravan Lyon MD, Labor atory Dire tor. Case revie wed and diagn osis rende red at [facility] [employer] [employer] [facility] [employer], d/b/a Crystal jimenez, [address] [place] [address] Sravan Lyon MD, Labor atory Dire tor. CONFI DENTI AL Not Available [facility]) [address], [place], [place], [facility], 07/25/2020 10:11:40 07/21/20 20 07/23/2020 HPV DNA, high- risk HPV high risk NOT DETECT ED normal Not Available [facility] ([facility]) [address] [facility] [address], [place], [address], 07/25/2020 10:11:41 08/19/20 22 08/19/2022 IMAGE GUIDE D PAP AND HPV REGAR DLESS image guided Pap, HPV regardless of Pap result SEE RESULT S BELOW CASE REPOR T: Cytol ogy Gynec ologi jayce Repor t Case: [id number] Autho riramon g Provi gianluca: Renetta Hughes MD Colle cted: 08/19 1230 Order ing Locat ion: [place] Patho logy Recei angelo: 08/20 0111 First Scree n: DeLuc a, Rand, CT Rescr een: Zurdo Floyd Speci men: Scree vasquez Pap - Image d, Cervi x STATE MENT OF ADEQU ACY: UNSAT ISFAC TORY SPECI MEN FINAL DIAGN OSIS: Unsat isfac tory for evalu ation . Epith elial cells obscu red by blood and infla mmati on. Elect portia jha malena d by Zurdo Floyd on 08/20 at 4:30 PM ----- ----- ----- ----- ----- ----- ----- ----- ----- ----- ----- ----- ----- ----- ----- ----- ----- ---- HPV RESUL TS: HPV mRNA E6/E7 : No HPV mRNA Detec betsy NOTE: This high risk HPV mRNA assay detec ts fourt een high- risk HPV types (16, 18, 31, 33, 35, 39, 45, 51, 52, 56, 58, 59, 66, 68) witho ut diffe renti ation . COMME NT: Note: This speci men was revie wed by a Cytot echno logis t and/o r Patho logis t (as indic ated in this repor t) after evalu ation using the Thinp rep Imagi ng Syste m. CLINI JAYCE INFOR MATIO N: Menst rual Statu s: LMP (if appli cable ): Clini jayce Histo ry/Pr eviou s Pap: Type of Neopl krystle (if appli cable ): Signi fican t Clini jayce Findi ngs: Other Histo ry: Hormo lucila (if appli cable ): Not Available [facility] (Lab) [address] [facility], [place], [address], 08/20/2022 17:32:59 09/27/19 23 09/27/2022 IMAGE GUIDE D PAP AND HPV REGAR DLESS image guided Pap, HPV regardless of Pap result SEE RESULT S BELOW CASE REPOR T: Cytol ogy Gynec ologi jayce Repor t Case: [id number] Autho sherwin kaplan Provi gianluca: Jone Tom Colle cted: 09/27 1614 SALES OFFICE ASSISTANT Order ing Locat ion: [place] Patho logy Recei angelo: 09/28 0053 First Shaka n: Ame Valdez Speci men: Scree vasquez Pap - Image d, Cervi x STATE MENT OF ADEQU ACY: Satis facto ry for evalu ation Trans forma tion zone compo nent prese nt Parti ally obscu ring infla mmati on prese nt. FINAL DIAGN OSIS: Negat jeremias for Intra epith elial Carmina corrales or Dante carter (NIL) . Atrop hic cell davie mayer. Elect portia jha malena d by Ame Valdez ica on 2022 at 12:25 PM ----- ----- ----- ----- ----- ----- ----- ----- ----- ----- ----- ----- ----- ----- ----- ----- ----- ---- HPV RESUL TS: HPV mRNA E6/E7 : No HPV mRNA Detec betsy NOTE: This high risk HPV mRNA assay detec ts fourt een high- risk HPV types (16, 18, 31, 33, 35, 39, 45, 51, 52, 56, 58, 59, 66, 68) witho ut diffe renti ation . COMME NT: Note: This speci men was revie wed by a Cytot echno logis t and/o r Patho logis t (as indic ated in this repor t) after evalu ation using the Thinp rep Imagi ng Syste m. CLINI JAYCE INFOR MATIO N: Menst rual Statu s: LMP (if appli cable ): Clini jayce Histo ry/Pr eviou s Pap: Type of Neopl krystle (if appli cable ): Signi fican t Clini jayce Findi ngs: Other Histo ry: Hormo lucila (if appli cable ): PAP EDUCA ROBERT L NOTE: The Pap Test is a scree vasquez test with an inher ent false negat jeremias rate. Liqui d-bas ed sampl ing may decre ase, but will not elimi [place], false negat jeremias resul ts. A negat jeremias resul t does not precl ude the prese nce and/o r devel opmen t of disea se, since the prese nce of abnor mal cells in the sampl e depen ds on the locat ion of the lesio n and sampl ing techn ique. Jasmyn nued regul ar scree vasquez is the best metho d of cance r preve ntion . If repor betsy cytol ogic findi ng do not corre late with physi jayce and/o r histo rical findi ngs, furth er inves tigat ion is recom zak d, as clini arash prakash nted. Not Available [facility] (Lab) [address], [place], [address], 10/01/2022 13:28:05 Result Notes None recorded. 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 11:40:30 Screening for malignant neoplasm of rectum Completed 201506/25/2021 Encounter for screening for malignant neoplasm of rectum;Rec orded Elsewhere: No Locatio n: [facility] Gloria rce: EHR Chroni c: N Practice ID: [id number] Billa ble Time: 03:30:00 PM Harleen Hill [facility] 11:40:[address] Concept Completed 201706/25/2021 Encntr for general adult medical exam w/o abnormal findings;R ecorded Elsewhere: No Locatio n: [facility] Gloria rce: EHR Chroni c: N Practice ID: [id number] Billa ble Time: 09:30:00 AM Harleen Hill [facility] 11:40:29 Problem Notes None recorded. Procedures Surgical History Date Name Laterality Status Provider Name and Address Organization Details Recorded Time 04/08/20 23 Carpal tunnel surgery completed Linnette [facility] 08/19/2023 17:40:02 09/27/19 23 Date of Last Pap Smear completed Linnette Melo [facility] 08/19/2023 17:34:09 08/08/20 22 Date of Last Mammogram completed Linnette Melo [facility] 08/19/2023 17:38:46 12/12/19 22 Date of Last Colonoscopy completed Sho Ryan [facility] 08/17/2022 12:13:29 12/09/19 22 Most Recent Bone Density completed Shari Aarno [facility] 09/27/2022 16:31:32 Carpal tunnel surgery completed Linnette Melo [facility] 08/19/2023 17:39:44 excision of lymph node completed [facility] 06/25/2021 11:46:06 release of trigger finger completed [facility] 06/25/2021 11:46:18 Imaging Results None recorded. Procedure Notes None recorded. Medical Equipment None Reported. Allergies Allergen ID Allergen Name Allergen Category Reaction Reaction Severity Criticality Documentation Date Start Date Code Code System Note Provider Name and Address Organization Details Recorded Time 2722 Substance with sulfonami de structure and antibacte rial mechanism of action (substanc e) medicatio n Not available Not available Not available 07/21/2020 27181 8003 SNSRUTHI Khan ese, [facility] 0 16:07:28 Medications Name Sig Start Date Stop Date Status Note LastModified by Organization Details LastModified Time prednison e 10 mg tablet 08/17 completed Not Available Not Available Not Available hydrocodo ne 5 mg-acetam inophen 325 mg tablet TAKE 1 TABLET BY MOUTH EVERY 4 TO 6 HOURS active Not Available Not Available No t Available meloxicam 15 mg tablet TAKE 1 TABLET BY MOUTH EVERY DAY 08/19 completed Not Available Not Available Not Available prednison e 5 mg tablet 08/17 completed Not Available Not Available Not Available azathiopr ine 50 mg tablet TAKE 1 TABLET BY MOUTH EVERY 12 HOURS active Not Available Not Available No t Available tramadol 50 mg tablet TAKE 1 TABLET BY MOUTH EVERY 8 HOURS NEEDED active Not Available Not Available No t Available benzonata te 100 mg capsule TAKE 1 CAPSULE BY MOUTH THREE TIMES A DAY FOR 10 DAYS 08/19 completed Not Available Not Available Not Available prednison e 2.5 mg tablet 08/17 completed Not Available Not Available Not Available oseltamiv ir 75 mg capsule TAKE 1 CAPSULE BY MOUTH TWICE A DAY FOR 7 DAYS 08/19 completed Not Available Not Available Not Available Prednison e Intensol 5 mg/mL oral concentra te 06/25 completed Not Available Not Available Not Available triamtere ne 37.5 mg-hydroc hlorothia zide 25 mg tablet TAKE 1 TABLET BY MOUTH EVERY MORNING 08/19 completed Not Available Not Available Not Available gabapenti n 100 mg capsule TAKE 1 CAPSULE BY MOUTH EVERY DAY AT BEDTIME 08/17 completed Not Available Not Available Not Available doxycycli ne hyclate 100 mg tablet TAKE 1 TABLET BY MOUTH TWICE A DAY FOR 7 DAYS 08/17 completed Not Available Not Available Not Available naproxen 500 mg tablet TAKE 1 TABLET BY MOUTH TWICE A DAY WITH FOOD active Not Available Not Available No t Available amoxicill in 875 mg-potass ium clavulana te 125 mg tablet TAKE 1 TABLET BY MOUTH TWICE A DAY FOR 10 DAYS active Not Available Not Available No t Available duloxetin e 30 mg capsule,d elayed release TAKE 1 CAPSULE BY MOUTH DAILY 08/19 completed Not Available Not Available Not Available ibandrona te 150 mg tablet TAKE 1 TABLET BY MOUTH ONCE MONTHLY active Not Available Not Available No t Available Durlaza 162.5 mg capsule,e xtended release take 1 capsule by oral route every day at the same time each day 06/15 completed Prescrib ed Elsewher e: Yes Loca tion: [facility] M odify By: mikael Thomas ncounter DateTime : 04/22/20 16 03:30:00 PM Not Available Not Available Not Available Flublok Quad (PF) 180 mcg (45 mcg x 4)/0.5 mL IM syringe PHARMACI ST ADMINIST ERED IMMUNIZA TION ADMINIST ERED AT TIME OF DISPENSI NG 07/21 completed Not Available Not Available Not Available Vitals Date Recorded Body height Body mass index (BMI) Body weight Systolic blood pressure Diastolic blood pressure Provider Name and Address Organization Details Last Updated DateTime 06/25/2021 154.94 cm 36.5 kg/m2 30028.33 g 130 mm[Hg] 80 mm[Hg] Harleen [facility] 12:27:01 Date Recorded Body height Body mass index (BMI) Body weight Systolic blood pressure Diastolic blood pressure Provider Name and Address Organization Details Last Updated DateTime 08/17/2022 154.94 cm 34.4 kg/m2 05759.81 g 117 mm[Hg] 77 mm[Hg] Sho Ryan [facility] 2 12:13:16 Date Recorded Body height Provider Name an d Address Organization Details Last Updated DateTime 09/27/2022 154.94 cm Shari Aaron [facility] 09/27/2022 16:31:15 Date Recorded Systolic blood pressure Diastolic blood pressure Provider Name and Address Organization Details Last Updated DateTime 09/27/2022 122 mm[Hg] 80 mm[Hg] Kaylyn Card, [facility]- [address], [place], [address], [facility] 09/27/2022 16:51:52 Date Recorded Body height Body mass index (BMI) Body weight Systolic blood pressure Diastolic blood pressure Provider Name and Address Organization Details Last Updated DateTime 08/19/2023 154.94 cm 31.9 kg/m2 03169.11 g 133 mm[Hg] 80 mm[Hg] Linnette Melo [facility] 3 17:36:45 Date Recorded Body height Body mass index (BMI) Body weight Systolic blood pressure Diastolic blood pressure Provider Name and Address Organization Details Last Updated DateTime 07/21/2020 157.48 cm 37.9 kg/m2 76435.62 g 135 mm[Hg] 83 mm[Hg] Katarina Khan [facility] 0 16:07:50 Social History Question Answer Notes LastModified by Organizat ion Details LastModified Time Tobacco Smoking Status Never Smoker Shari Aaron null, [facility] 09/27/2022 16:31:37 Do You Have An Advance Directive? No Information not available 06/25/2021 What Is Your Level Of Alcohol Consumption? Occasional Information not available 06/25/2021 Are You Blind Or Do You Have Difficulty Seeing? No Information not available 06/25/2021 What Is Your Level Of Caffeine Consumption? Occasional Information not available 06/25/2021 How Much Tobacco Do You Chew? None Information not available 09/27/2022 In The 14 Days Before Symptom Onset, Have You Had Close Contact With A Laboratory-confir med COVID-19 While That Case Was Ill? No Information not available 06/25/2021 In The 14 Days Before Symptom Onset, Have You Had Close Contact With A Person Who Is Under Investigation For COVID-19 While That Person Was Ill? No Information not available 06/25/2021 Are You Deaf Or Do You Have Serious Difficulty Hearing? Yes Information not available 06/25/2021 What Type Of Diet Are You Following? REGULAR Information not available 06/25/2021 What Is The Highest Grade Or Level Of School You Have Completed Or The Highest Degree You Have Received? 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 No Information not available 06/25/2021 Do You Use Protection During Sex? No Information not available 06/25/2021 Do You Use Your Seat Belt Or Car Seat Routinely? Yes Information not available 06/25/2021 Do You Have Smoke And Carbon Monoxide Detectors In Your Home? Yes Information not available 06/25/2021 How Much Tobacco Do You Smoke? No Information not available 06/25/2021 Do You Feel Stressed (tense, Restless, Nervous, Or Anxious, Or Unable To Sleep At Night)? [id number] Information not available 06/25/2021 Do You Use Any Illicit Or Recreational Drugs? No Information not available 06/25/2021 Do You Use Sunscreen Routinely? Yes Information not available 06/25/2021 Have You Used IV Drugs? No Information not available 06/25/2021 Sex: Unknown Functional Status Question Answer Note LastModified by Organizat ion Details LastModified Time Do you have difficulty walking or climbing stairs? No Information not available 09/27/2022 Are you able to walk? YESWOREST Information not available 06/25/2021 Are you able to care for yourself? Yes Information not available 09/27/2022 Do you have difficulty dressing or bathing? No Information not available 09/27/2022 What is your exercise level? Occasional Information not available 06/25/2021 Mental Status None recorded. Family History Relationship Description Onset Age of this Age Resolved Age Notes LastModified by Organization Details LastModified Time Maternal Grandfather Malignant tumor of lung Not available 2020 11:44:04 Maternal Grandmother Malignant tumor of lung Not available 2020 11:44:04 Mother Malignant tumor of lung Not available 2020 11:44:04 Medical History Condition Response Other Y Gynecological History Statement/Question Response Abnormal Pap N Date of Last Mammogram 08/08/2022 N Was last menstrual period normal Y STIs/STDs N HPV Vaccine N Current Control Method Menopause Age at First Child 17 If Post Menopausal, Age at Menopause 43 Date of Last Colonoscopy 12/11/2021 Most Recent Bone Density 12/08/2021 Sexually Active? Y Menses Monthly N Age of first menstrual cycle 8 Date of Last Pap Smear 09/27/2022 Sexual Problems? N LMP Unknown N Obstetrics History GPAL:G 2 P 0 0 0 2 Type Value Living 2 Total 2 Past Encounters Encounter ID Performer Location Encounter Start Date Encounter Closed Date Diagnosis/Indication Diagnosis SNOMED-CT Code Diagnosis ICD10 Code Diagnosis Note [id number] Kaylyn Card [facility] [address] [address] 07/21/2020 16:00:33 07/23/2020 13:14:33 Gynecologic examination 52534682 Z01.419 Take Calcium with Vitamin D 12-1500mg daily. Do monthly self breast exams. It is advised to get annual flu shot in the fall and she could obtain at [facility] or [facility] clinic. If you haven't received the Tdap vaccine in the last 10 years you should obtain one as well. Have mammogram yearly, bone density every 2-3 years and colonoscop y every 5-10 years depending on findings and history. Engage in daily exercise of low impact aerobic exercise 45-60 minutes 4-5 times weekly. Avoid tobacco and illicit drugs as well as using moderation with alcohol intake less than 1-2 8 oz beverages daily. This lifestyle behavior pattern will lead to less health conditions and longer life span. If BMI greater than 25 weight watchers or dietary consult advised. Questions have been answered. Patient appears to understand instructio ns, but if you have any further questions call or respond to this email Pap/hpv preferred & sent Norm pap/hpv Mammo ordered colonoscop y UTD No issues [place] 1[place] [id number] Kaylyn Card [facility] [address],[place] [address] 06/25/2021 12:15:09 06/25/2021 13:22:21 Gynecologic examination [id number] Z01.419 Take Calcium with Vitamin D 12-1500mg daily. Do monthly self breast exams. It is advised to get annual flu shot in the fall and she could obtain at [facility] or [facility]. If you haven't received the Tdap vaccine in the last 10 years you should obtain one as well. Have mammogram yearly, bone density every 2-3 years and colonoscop y every 5-10 years depending on findings and history. Engage in daily exercise of low impact aerobic exercise 45-60 minutes 4-5 times weekly. Avoid tobacco and illicit drugs as well as using moderation with alcohol intake less than 1-2 8 oz beverages daily. This lifestyle behavior pattern will lead to less health conditions and longer life span. If BMI greater than 25 weight watchers or dietary consult advised. Questions have been answered. Patient appears to understand instructio ns, but if you have any further questions call or respond to this email Pap/hpv due age 62yo unless otherwise indicated per asccp Norm pap/hpv Mammo completed wnl colonoscop y UTD No issues or concerns RTOx 1yr or prn [id number] Kaylyn Card [facility] [address],[facility] [place] [address] 08/17/2022 11:58:40 08/17/2022 12:30:51 Gynecologic examination [id number] Z01.419 Take Calcium with Vitamin D 12-1500mg daily. Do monthly self breast exams. It is advised to get annual flu shot in the fall and she could obtain at [facility] or [facility] care clinic. If you haven't received the Tdap vaccine in the last 10 years you should obtain one as well. Have mammogram yearly, bone density every 2-3 years and colonoscop y every 5-10 years depending on findings and history. Engage in daily exercise of low impact aerobic exercise 45-60 minutes 4-5 times weekly. Avoid tobacco and illicit drugs as well as using moderation with alcohol intake less than 1-2 8 oz beverages daily. This lifestyle behavior pattern will lead to less health conditions and longer life span. If BMI greater than 25 weight watchers or dietary consult advised. Questions have been answered. Patient appears to understand instructio ns, but if you have any further questions call or respond to this email Pap/hpv sent USPSTF recommends against screening for cervical cancer in women older than 65yo, those who've had a hysterecto my for non-cancer indication s, & who have had adequate prior screening & are not otherwise at high risk for cervical cancer. STD Screen declined Genetic Screen discussed Colon Screen UTD PCP Dexa Screen PCP UTD Routine Labs [facility] [id number] Kaylyn Card [facility] [address] [address] 09/27/2022 16:19:17 09/27/2022 16:54:13 Sampling of vagina for Papanicolaou smear [id number] Z01.42 Unsatisfac tory sample last pap/hpvRep eat pap today.If wnl d/c pap USPSTF recommends against screening for cervical cancer in women older than 65yo, those who've had a hysterecto my for non-cancer indication s, & who have had adequate prior screening & are not otherwise at high risk for cervical cancer. [id number] Kaylyn Card [facility] [address] [address] 08/19/2023 17:23:08 08/20/2023 08:42:11 Gynecologic examination [id number] Z01.419 Z11.51 Take Calcium with Vitamin D 12-1500mg daily. Do monthly self breast exams. It is advised to get annual flu shot in the fall and she could obtain at [facility] or [facility] take care clinic. If you haven't received the Tdap vaccine in the last 10 years you should obtain one as well. Have mammogram yearly, bone density every 2-3 years and colonoscop y every 5-10 years depending on findings and history. Engage in daily exercise of low impact aerobic exercise 45-60 minutes 4-5 times weekly. Avoid tobacco and illicit drugs as well as using moderation with alcohol intake less than 1-2 8 oz beverages daily. This lifestyle behavior pattern will lead to less health conditions and longer life span. If BMI greater than 25 weight watchers or dietary consult advised. Questions have been answered. Patient appears to understand instructio ns, but if you have any further questions call or respond to this email Pap/hpv d/c USPSTF recommends against screening for cervical cancer in women older than 65yo, those who've had a hysterecto my for non-cancer indication s, & who have had adequate prior screening & are not otherwise at high risk for cervical cancer. STD Screen declinedGe netic Screen discussedC olon Screen UTD PCPDexa Screen PCP UTDRoutine Labs PCP UTDMammo scheduled PCP Health Concerns Section Related Observation LastModified by Organization Detai ls LastModified Time None Recorded Concern Status LastModified by Organization Details LastModified Time None Recorded Advance Directives Directive N: Payers Encounter Date Sequence Insurance Name Policy Number Policy Sharp Covered Member ID Sharp Member ID Guarantor Name 07/21/2020 1 [place] [id number] 1 Amy Zuñiga [id number] [address] [place] [address] Yogesh 06/25/2021 1 [place] [id number] 1 Amy Zuñiga [id number] Amy Zuñiga 08/17/2022 1 [place] [id number] 1 Amy Zuñiga [id number] Amy Zuñiga 09/27/2022 1 [place] [id number] 1 Amy Zuñiga [id number] Amy Zuñiga 08/19/2023 1 [place] [id number] 1 Amy Zuñiga [id number] [address] [place] [address] Yogesh Notes Date Note Type Note Provider Name and Address Organization Details Recorded Time 07/21/2020 text/html Annual GYNReport ed bypatient.History:no gynecologic complaints Menstrual cycle:Postmenopause Urinary symptoms:No hematuria; No incontinence Vulva:No genital lesion Vagina:Normal vaginal discharge Breast:No breast pain; No breast lump; No nipple discharge Current Contraception:Monoga mous relationship Sexual complaints:No sexual complaints; No pain during intercourse; Normal libido Menopausal Symptoms:No menopausal symptoms; Normal vaginal lubrication Psychological symptoms:No depression; No anxiety; No PMDD Preventive measures:Encourage self breast examination; Encourage regular exercise; Encourage no tobacco use; Encourage regular mammograms starting age 40; Followed with Q3 year pap smear and high risk HPV typing [facility] [address], [place], [address], [facility] 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 betsy bypatient.Menopausal Symptoms:no menopausal symptoms; normal vaginal lubrication Vaginal Bleeding:history of menopause having occurred; no history of post menopausal bleeding Urinary Symptoms:no hematuria; no incontinence; no nocturia; no urinary frequency Vulva:no genital lesion; no vulvar atrophy Vagina:normal vaginal discharge; no vaginal atrophy Breast:no breast lump; no nipple discharge; no breast pain Sexual Complaints:no sexual complaints Psychological Symptoms:no depression; no anxiety Preventive Measures:encourage regular mammograms starting age 40; encourage self breast examination; encourage regular exercise; encourage no tobacco use; mammogram performed within the past year; history of recent colonoscopy; Dexa managed by PCP JULIA Rodas [address], [place], [address], [facility] 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 betsy bypatient.Menopausal Symptoms:no menopausal symptoms; normal vaginal lubrication Vaginal Bleeding:history of menopause having occurred; no history of post menopausal bleeding Urinary Symptoms:no hematuria; no incontinence; no nocturia; no urinary frequency Vulva:no genital lesion; no vulvar atrophy Vagina:normal vaginal discharge; no vaginal atrophy Breast:no breast lump; no nipple discharge; no breast pain Sexual Complaints:no sexual complaints Psychological Symptoms:no depression; no anxiety Preventive Measures:encourage regular mammograms starting age 40; encourage self breast examination; encourage regular exercise; encourage no tobacco use; needs to schedule mammogram; history of recent colonoscopy Kaylyn Card [facility] [address], [place], [address], [facility] 08/17/2022 12:30:19 09/27/2022 text/html Here for unsatisfactory pap sample to do r/p pap/hpv testing. Kaylyn Card [facility] [address], [place], [address], [facility] 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 betsy bypatient.Menopausal Symptoms:no menopausal symptoms; normal vaginal lubrication Vaginal Bleeding:history of menopause having occurred; no history of post menopausal bleeding Urinary Symptoms:no hematuria; no incontinence; no nocturia; no urinary frequency Vulva:no genital lesion; no vulvar atrophy Vagina:normal vaginal discharge; no vaginal atrophy Breast:no breast lump; no nipple discharge; no breast pain Sexual Complaints:no sexual complaints Psychological Symptoms:no depression; no anxiety Preventive Measures:encourage regular mammograms starting age 40; encourage self breast examination; encourage regular exercise; encourage no tobacco use; needs to schedule mammogram; history of recent colonoscopy Kaylyn Card [facility] [address], [place], [address], [facility] 08/19/2023 19:06:32 OBGyn Episode Ob Episode Information Episode Created Date Number of Fetuses Patient Bloodtype Patient rh Status Prepregnancy Weight lbs Domestic Partner Domestic Partner Phone Father Name Assistant Merchandiser Status 06/25/20 21 1 CLOSED Fetus Data First Name Last Name Admitted to NICU Weight (g) Sex Living Outcome Pediatric Complications Fetus ID Race Codes Race Delivery Type 3231.84 3 F Full Term [id number] Vaginal Delivery Jose Calculation Initial Jose Date Initial Exam Date Initial Exam Provider Initial Ultrasound Date Last Menstrual Period Date Ultra Sound Weeks Gestation 0 Eighteen To Twenty Week Jose Update Ultra Sound Date Fundal Height At Umbil Quickening Date Ultra Sound Latest Weeks Gestation Final Jose Confirmed By Final Jose Confirmed Date Final Jose Date Ultra Sound Latest Days Gestation 0 0 Menstrual History Last Menstrual Date Menses Monthly On Bcp Conception Prior Menses Frequency Hcg Plus Date Menarche Onset Age Delivery Information Delivery Date Delivery Type Labor Anesthesia Weeks Gestation Incision Type Labor Labor Length Hrs Delivered By Post Complications Tubal Sterilization Discharge Date Comments 8 40 Discharge Information Feeding Method Contraceptive Method Maternal HG B and HCT Levels Ob Episode Information Episode Created Date Number of Fetuses Patient Bloodtype Patient rh Status Prepregnancy Weight lbs Domestic Partner Domestic Partner Phone Father Name Assistant Merchandiser Status 06/25/20 21 1 CLOSED Fetus Data First Name Last Name Admitted to NICU Weight (g) Sex Living Outcome Pediatric Complications Fetus ID Race Codes Race Delivery Type 3175.14 4 M Full Term [id number] Vaginal Delivery Jose Calculation Initial Jose Date Initial Exam Date Initial Exam Provider Initial Ultrasound Date Last Menstrual Period Date Ultra Sound Weeks Gestation 0 Eighteen To Twenty Week Jose Update Ultra Sound Date Fundal Height At Umbil Quickening Date Ultra Sound Latest Weeks Gestation Final Jose Confirmed By Final Jose Confirmed Date Final Jose Date Ultra Sound Latest Days Gestation 0 0 Menstrual History Last Menstrual Date Menses Monthly On Bcp Conception Prior Menses Frequency Hcg Plus Date Menarche Onset Age Delivery Information Delivery Date Delivery Type Labor Anesthesia Weeks Gestation Incision Type Labor Labor Length Hrs Delivered By Post Complications Tubal Sterilization Discharge Date Comments 2 40 Discharge Information Feeding Method Contraceptive Method Maternal HG B and HCT Levels
--- OUTSIDE RECORDS SUMMARY | 2024-11-26 12:34 | XMS_ITS | Continuity of Care Document ---
Author Organization [facility] Address [address] [place] [address] Phone Care Team Providers Care Food Safety Officer Name Role Phone Anmol Jimenez DO Unavailable Unavailable Allergies, Adverse Reactions, Alerts Substance Reaction Status Criticality Sulfa (Sulfonamide Antibiotics) Rash Active No Information Medications Medication Instructions Dosage Effective Dates (start - stop) Status Comments hydrocodone 5 mg-acetaminophen 325 mg tablet TAKE 1 TABLET BY MOUTH EVERY 4 TO 6 HOURS - Active NAPROXEN 500 MG TABLET TAKE 1 TABLET BY MOUTH TWICE A DAY WITH FOOD - Active azathioprine 50 mg tablet - Active ibandronate 150 mg tablet TAKE 1 TABLET BY MOUTH ONCE MONTHLY - Active tramadol 50 mg tablet - Acti ve Procedures Procedure Date BMI Documented Above Normal Limit F/U Pl an Doc Global/Postop followup visit Asp/inject major joint or bursa w/o US g uidance Kenalog 40mg/mL BMI Documented Above Normal Limit F/U Pl an Doc Global/Postop followup visit Global/Postop followup visit Office/outpatient visit,est, mod 2023 Office/outpatient visit,est, mod 2023 MRI lower extrm joint, w/o contrast Office/outpatient visit,est, mod 2023 X-ray exam knee, 4+ views BMI Documented Above Normal Limit F/U Pl an Doc Advance Directives Directive Yes / No Effective Date File Name No Information Encounters Encounter Description Practice Location Reason(s) For Visit Diagnoses Date Provider Providers Copied on Encounter [facility], [address], [place], [place], [id number], [place] tel:[phone] [facility] Encounter for other orthopedic aftercare 5 Tony Corea. [address], [place], [place], [id number] , [place]. tel: [phone] Referring Provider: Anmol Billingsley, [address] [facility], [place], [address] . tel:[phone] [facility], [address], [place], [place], [id number], [place] tel:[phone] [facility] Encounter for other orthopedic aftercare 5 Tony Corea. [address], [place], [place], [id number] , [place]. [phone] Referring Provider: Anmol Billingsley, [address], [place], [address] . tel:[phone] [facility], [address], [place], [place], [id number], [place] tel:[phone] [facility] Pain in right kneeEncounter for other orthopedic aftercare 4 Tony Corea. [address] [facility], [facility] [address], [place], [place], [id number] , [place]. [phone] Referring Provider: Anmol Billingsley, [address], [place], [address] . tel:[phone] [facility], [address], [place], [place], [id number], [place] tel:[phone] [facility] No Information 4 Tony Anmol. [address] [facility], [address] [address], [place], [place], [id number] , [place]. tel: [phone] [facility], [address], [place], [place], [address], [place] tel:[phone] [facility] No Information 4 Tony Anmol. [address] [facility], [address] [place] [address], [place], [place], [id number] , [place]. tel: [phone] [facility], [address] [address], [place], [place], [address], [place] tel:[phone] [facility] Complex tear of medial mensc, current injury, r knee, init 4 Tony Anmol. [address] [facility], [place] [address], [place], [place], [id number] , [place]. tel: [phone] Office/outpat ient visit,est, [facility], [address] [address], [place], [place], [address], [place] tel:[phone] [facility] Pain in right knee 4 Tony Anmol. [address] [facility], [address] [place] [address], [place], [place], [id number] , [place]. tel: [phone] Referring Provider: Anmol Billingsley, [address] [address], [place], [address] . tel:[phone] Office/outpat ient visit,est, mod [facility], [address] [address], [place], [place], [address], [place] tel:[phone] [facility] Pain in right knee 4 Tony Anmol. [address] [facility], [address] [place] [address], [place], [place], [address] , [place]. tel:[phone] Referring Provider: Anmol Billingsley, [address] [address], [place], [address] . tel:[phone] [facility], [address] [facility] [address], [place], [place], [address], [place] tel:[phone] [facility] Pain in right knee 4 [facility]. [address] [facility], [address], [place], [place], [address] , [place]. tel:[phone] Referring Provider: Anmol Billingsley, [address], [place], [address] . tel:[phone] Office/outpat ient visit,est, mod [facility], [address], [place], [place], [address], [place] tel:[phone] [facility] right knee pain (chief complaint) Pain in right kneeComplex tear of medial mensc, current injury, r knee, init 4 Tony Corea. [address] [facility], [address], [place], [place], [address] , [place]. tel: [phone] Referring Provider: Anmol Billingsley, [address], [place], [address] . tel:[phone] Family History Family Member Type Diagnosis Age At Onset Mother Problem (finding) Cancer, unknown Immunizations Vaccine Date Status Comments Pneumo (2 yrs or older) (PPV23) administe red Source: Other Provider influenza, injectable, quadr ivalent, (3 years or older) administered Source: Other Provid er Payers Payer name Insurance type Covered constitution party ID Authoriza tion(s) AAR Medicare Advantage HMO PPO CI [id number] Social History Type Description Quantity Date Captured Comments Alcohol Use Details Unknown Caffeine Use Details Unknown Tobacco Use Status No Information Smoking Status No Information Non-Smoking Tobacco Use Details : No Details Available : No Details Available Sex Female Vital Signs Date / Time: Height Weight BMI Pulse Rate Blood Pressure Temperature Respiratory Rate Body Surface Area Head Circumference Head Circ. Percentile Wt./Vikas. Percentile BMI percentile Pulse Ox Inhaled Ox 1:24 PM 61.00 in 76.204 kg (168.00 lbs) 31.7 4 kg/m eter (2) Chief Complaint And Reason For Visit No Information Reason For Referral Reason For Referral No Information Plan Of Treatment Date Type Action Status Referral Ordered: MRI lower extrm joint, w/o contrast RT knee ordered Referral Ordered: X-ray exam knee, 4+ views RT ordered History Of Present Illness Encounter Date Complaint History Of Prese nt Illness right knee pain Functional Status Date Functional Assessmen t No Information Instructions Date Instruction Additional Infor mation No Information Assessments Type Assessment Date No Information Patient Care Teams Name Effective Dates (start - stop) Status Members No Information
--- OUTSIDE RECORDS SUMMARY | 2024-11-26 12:34 | XMS_ITS | Continuity of Care Document ---
Author Organization [facility] Address [address] [place] [address] Phone Care Team Providers Care Water/Wastewater Engineer Name Role Phone Santos Maciel MD Unavailable Unavailable Allergies, Adverse Reactions, Alerts Substance Reaction Status Criticality Sulfa (Sulfonamide Antibiotics) rash Active No Information Medications Medication Instructions Dosage Effective Dates (start - stop) Status Comments azathioprine 50 mg tablet take 1 tablet by oral route 2 times every day 50 MG - Active prednisone 20 mg tablet - Active aspirin 81 mg tablet,delayed release - Active Procedures Procedure Date OFFICE CONSULTATION Advance Directives Directive Yes / No Effective Date File Name No Information Encounters Encounter Description Practice Location Reason(s) For Visit Diagnoses Date Provider Providers Copied on Encounter [facility], [address] [place] [address], [address], [place] tel:[phone] [facility] No Information 7 Raheem Graham. [address] [place] [address], [id number] . tel: [phone] OFFICE CONSULTATION [facility], [address] [place] [address] [address], [address], [place] tel:[phone] [facility] Body mass index (BMI) 34.0-34.9, adultAcute left-sided back pain with sciatica 7 Raheem Graham. [address] [place] [address], [id number] . tel: [phone] Referring Provider: Davian Lott [address], [place], [address] . tel:[phone] [facility], [address], [place], [address], tel:[phone] [facility] No Information 5201 7 Raheem Graham. [address] [place], [place], [id number] . tel: [phone] Referring Provider: EDGARDO MUNOZ, [address], [place], [place]. tel:[phone] Family History Family Member Type Diagnosis Age At Onset mom Problem (finding) Cancer, Lung Cancer Father Problem (finding) Alive and well Payers Payer name Insurance type Covered alliance party ID Authoriza tion(s) No Information Social History Type Description Quantity Date Captured Comments Sex Female Smoking Status No Information Chief Complaint And Reason For Visit No Information Reason For Referral Reason For Referral No Information Plan Of Treatment Date Type Action Status Referral Ordered: MRI SPI CANAL&CNTS CRV C-MATRL spine, cervical ordered Referral Ordered: RADEX SPI LUMBOSAC MINIMUM 4 VIEWS ordered History Of Present Illness Encounter Date Complaint History Of Prese nt Illness No Information Functional Status Date Functional Assessmen t No Information Instructions Date Instruction Additional Infor mation Avoid prolonged bed rest. Relate d to Acute left-sided back pain with sciatica Activity as tolerated. Related t o Acute left-sided back pain with sciatica Weight monitoring Related to Bod y mass index (BMI) 34.0-34.9, adult Assessments Type Assessment Date No Information Patient Care Teams Name Effective Dates (start - stop) Status Members No Information
--- OUTSIDE RECORDS SUMMARY | 2024-11-26 12:34 | XMS_ITS | Clinical Summary ---
Author Organization [facility] Address [address] [place] [address] Phone Care Team Providers Care Chemicals Distiller Name Role Phone Unavailable Primary Care Provider Unavailabl e Allergies Active Allergy Reactions Criticality Noted Date Comments Sulfa (Sulfonamide Antibiotics) Rash Low 04/08 Medications aspirin (ECOTRIN EC) 81 mg Tablet, Delayed Release (E.C.) Take 81 mg by mouth daily. Active MULTIVITAMINS W/C ORAL Take by mouth. Activ e ERGOCALCIFEROL, VITAMIN D2, (VITAMIN D ORAL) Take by mouth. Activ e CYANOCOBALAMIN, VITAMIN B-12, (VITAMIN B12 ORAL) Take by mouth. Active fluticasone (FLONASE) 50 mcg/spray Flushing, Suspension Administer 2 Sprays in each nostril daily. Active CALCIUM ORAL Take 1 Tablet by mouth daily. 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 06/30/2016 Encounters Date Type Department Care Team Description 11/24/2024 External Device Data STL ABSTRACTION Provider, Abstract 11/13/2024 External Device Data STL ABSTRACTION Provider, Abstract 11/12/2024 External Device Data STL ABSTRACTION Provider, Abstract 11/10/2024 10:15 AM [employer]GE[employer] Office Visit [facility]mon[facility] [address] [place] [address] Leslie Villa MD Sarcoid (Primary Dx); History of pulmonary embolism; Immunocompromised patient 11/10/2024 External Device Data STL ABSTRACTION Provider, Abstract 11/09/2024 External Device Data ST[facility] ABSTRACTION Provider, Abstract 10/26/2024 External Device Data STL ABSTRACTION Provider, Abstract 10/22/2024 Results Follow-Up [facility] [place] [address] [place] [address] Leslie Villa MD PULMONARY FUNCTION TEST 10/19/2024 10:27 AM [employer] - 10/19/2024 11:59 PM [employer] Hospital Encounter [facility] Pulmonary Function [facility] [address] [place] [address] Leslie Villa MD Discharge Disposition: Home or Self Care 09/29/2024 External Device Data STL ABSTRACTION Provider, Abstract 09/28/2024 External Device Data STL ABSTRACTION Provider, Abstract 09/21/2024 External Device Data STL ABSTRACTION Provider, Abstract from Last 3 Months Immunizations Immunization Administration Dates Next Due (ADACEL/BOOSTRIX)(10 YR UP) TDAP VACCINE, 0.5ML, IM 08/13/2018 (SHINGRIX)(50 YRS UP) ZOSTER VACCINE RECOMBINANT, 0.5 ML, IM 06/08/2019 Influenza Seasonal Unspecifi ed Formulation IM 06/08/2019,06/30/2018,07/01/2017,2015 Family History Medical History Relation Name Comments Cancer Maternal Grandfather Cancer Maternal Grandmother Lung Cancer Maternal Grandmother Cancer Mother Lung Cancer Mother Asthma Neg Hx Bronchitis Neg Hx Diabetes Neg Hx Emphysema Neg Hx Heart Failure Neg Hx Hypertension Neg Hx Mesothelioma Neg Hx Tuberculosis Neg Hx Relation Name Status Comments Father Alive Maternal Grandfather Maternal Grandmother Mother Social History Tobacco Use Types Packs/Day Years Used Date Smoking Tobacco: Former Smokeless Tobacco: Former Tobacco Cessation:Counseling Given: Not Answered 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 Alcohol Use Standard Drinks/Week Comments Yes 0 (1 standard drink = 0.6 oz pur e alcohol) rare Comments No Sex and Gender Information Value Date Recorded Sex Assigned at Not on file Legal Sex Female 10:04 AM CDT Gender Identity Not on file Sexual Orientation Not on file Last Filed Vital Signs Vital Sign Reading Time Taken Comments Blood Pressure 116/80 11/10/2024 10:02 AM [employer] Pulse 65 11/10/2024 10:02 AM [employer] Temperature 36.9 C (98.5 F) 10/20/2017 3:14 PM [employer] Respiratory Rate 18 02/15/2021 3:16 PM CDT Oxygen Saturation 99% 11/10/2024 10:02 AM [employer] Inhaled Oxygen Concentration - - Weight 79.8 kg (176 lb) 11/10/2024 10:02 AM [employer] Height 154.9 cm (5' 1 ) 11/10/2024 10:02 AM [employer] Body Mass Index 33.25 11/10/2024 10:02 AM [employer] Plan of Treatment Upcoming Encounters Date Type Department Care Team (Late st Contact Info) Description 05/17/2025 10:45 AM CDT Office Visit [facility] Pulmonology [address] [place] [phone] Leslie Villa MD [address] [place] [address] [address] [place] [address] Health Maintenance Due Date Last Done Comments Pre-Diabetes and Diabetes Screening 1960 FIT-DNA Q 3 years 2003 FIT/FOBT Q 1 year 2003 Flex Sig/CT Colonography Q 5 years 2003 RSV VACCINE (60+ or ) (1 - Risk 60-74 years 1-dose series) 2018 INFLUENZA VACCINE (#1) 2024 3, 06/21/2019, 06/08/2019, Additional history exists PNEUMOCOCCAL VACCINE 50+ YEA RS (2 of 2 - PCV) 08/08/2024 08/08/2023 BREAST CANCER SCREENING 10/19/2025 10/19/19 25, 10/08/2023, 09/17/2022, Additional history exists DTAP/TDAP/TD VACCINES (2 - T d or Tdap) 08/13/2028 08/13/2018 COLORECTAL SCREENING 12/12/2031 12/11/2021 Colorectal Cancer Screening 12/12/2031 OSTEOPOROSIS SCREENING Completed 02/15/2019 ZOSTER VACCINE Completed 06/21/2019, 09/2018, 01/21/2019 Medical Devices Implanted Type Area Huller Operator Device Identifier Shelf Expiration Date Model / Serial / Lot Sealant Floseal W/ Adptr 10ml [id number] - [id number] Implanted:Qty : 1 on 05/08/2016 by Edna Corbett MD at [facility] Sealant Right: Axilla [employer] [id number] 09/07/2017 [id number] / / [id number] Explanted Type Area Huller Operator Device Identifier Shelf Expiration Date Model / Serial / Lot Port Pwrprt Clearvue Isp 8fr [id number] - [id number] Implanted:Qty : 1 on 05/08/2016 by Edna Corbett MD at [facility] Explanted:Qty : 1 on 08/19/2016 at [facility] Port Right: Chest CR [employer] [id number] 08/05/2017 [id number] / / [id number] Description:site: Right IJ Procedures Procedure Name Priority Date/Time Associated Diagnosis Comments PULMONARY FUNCTION TEST Routine 10/19/2024 10:31 AM [employer]GE[employer] XR DEXA BONE DENSITY 2 SITES Routine 02/15/2019 10:22 AM CDT Decreased diffusion capacity Sarcoid MAMMO 3D MARCELLA SCREEN BILAT W OR WO CAD Routine 04/26/2016 from Last 3 Months or Most Recently Relevant to Health Maintenance Results * PULMONARY FUNCTION TEST (10/19/2024 10:31 AM [employer]GE[employer]) 10/19/2024 10:3 1 AM [employer]GEANT Narrative INTERFACE SYSTEM - 10/19/2024 2:06 PM [employer]GE[employer] [address] [address] Test Date: 2024-10-19 Pat Name: AMY ZUÑIGA Department: Room: Gender: Female Director Vaccine: : 1960 Requested By: LESLIE VILLA Order Number: [id number] Reading MD: Mckay Ordoñez Interpretive Statements The patient is a 64 year old Female, height 155 cm. and weight of 174 lbs. The indication for the pulmonary function test is Hx of Sarcoidosis. Thios is a technically adequate study meeting ATS quality guidelines. SPIROMETRY revealed an FVC of 2.29 Liters, 86 % of predicted. The FEV1 is 1.71 Liters, 81 % of predicted, the FEV1/FVC ratio is 75 %. The configuration of the flow-volume loop is normal. DIFFUSION CAPACITY for carbon monoxide (DLCO) is 16.5 mL/min/mmHg, 94 % pred. IMPRESSION: Normal pulmonry function testing for spirometry, flow-volume loop analysis, and diffusion capacity. Electronically Signed On 10-19-2024 14:06:11 [employer]GE[employer] by Mckay Ordoñez Procedure Note Provider, Historical - 10/19/[address] [address] Test Date: 2024-10-19 Pat Name: AMY ZUÑIGA Department: Room: Gender: Female Director Vaccine: : 1960 Requested By: LESLIE VILLA Order Number: [id number] Reading MD: Mckay Ordoñez Interpretive Statements The patient is a 64 year old Female, height 155 cm. and weightof 174 lbs. The indication for the pulmonary function test is Hx of Sarcoidosis. Thios is a technically adequate study meeting ATS quality guidelines. SPIROMETRY revealed an FVC of 2.29 Liters, 86 % of predicted. The FEV1 is 1.71 Liters, 81 % of predicted, the FEV1/FVC ratio is 75 %. The configuration of the flow-volume loop is normal. DIFFUSION CAPACITY for carbon monoxide (DLCO) is 16.5 mL/min/mmHg, 94 %pred. IMPRESSION: Normal pulmonry function testing for spirometry, flow-volume loopanalysis, and diffusion capacity. Electronically Signed On 10-19-2024 14:06:11 [employer]ICAL [employer]GEANT by Mckay Ordoñez us Leslie Villa MD PFT ORDERABLES Final Result INTERFACE SYSTEM Refer to clinic/hospital department * XR DEXA BONE DENSITY 2 SITES (02/15/2019 10:22 AM CDT) Anatomical Region Laterality Modality Digital Radiogra phy 02/15/2019 10:2 2 AM CDT Impressions 02/15/2019 10:35 AM CDT IMPRESSION: This is a summary page. Please refer to the complete detailed report found in the Imaging Section of the [facility] EMR. Osteopenic BMD. Lumbar Spine: T-Score: -2.1 Left Femoral Neck: T-Score: -1.4 Left Total Femur: T-Score: -1.0 Right Femoral Neck: T-Score: -2.1 Right Total Femur: T-Score: -1.6 Comments: None. Statistical change: No prior exam is available. FRAX FRACTURE RISK ASSESSMENT: (Only valid Between 40-89 Years Of Age) Risk factors: None. 10 Year Probability Of Fracture Major Osteoporotic: 9.3 % Hip: 1.2 % Comparison population: [place], Race: White A major osteoporotic fracture is defined as a fracture of the spine, forearm, hip or shoulder. Definitions: Normal: T-score above -1.0 Osteopenia T-score less than -1.0 and above -2.5 Osteoporosis: T-score <= -2.5 Follow-up Recommendations: Patients without high risk factors for osteoporosis T-score -1.0 to -1.5 - Consider repeat BMD in 5-10 years T-score -1.5 to - 2.0 - Consider repeat BMD in 3-5 years T-score -2.0 to - 2.5 - Consider repeat BMD every 2 years Patients on treatment for osteoporosis 1-2 years after initiation of treatment and every 2 years [address] D[address] Dr[address] Sampson Santiago MD DICTATION LOCATION: 1 Narrative 02/15/2019 10:35 AM CDT EXAMINATION: BONE DENSITY STUDY (DXA) DATE: 02/15/2019 10:22 AM HISTORY: 58 years Female. Postmenopausal. PROCEDURE: Planar images of the lumbar spine and hip(s) using a LUNAR DEXA scanner for bone mineral density determination (BMD). FINDINGS: Lumbar Spine (L1-L4): T-Score: -2.1 0.925 g/sq cm Left Femoral Neck: T-Score: -1.4 0.837 g/sq cm Left Total Femur: T-Score: -1.0 Right Femoral Neck: T-Score: -2.1 0.749 g/sq cm Right Total Femur: T-Score: -1.6 Procedure Note Sampson Santiago MD - 02/15/2019 EXAMINATION: BONE DENSITY STUDY (DXA) DATE: 02/15/2019 10:22 AM HISTORY: 58 years Female. Postmenopausal. PROCEDURE: Planar images of the lumbar spine and hip(s) using a LUNAR DEXA scanner for bone mineral density determination (BMD). FINDINGS: Lumbar Spine (L1-L4): T-Score: -2.1 0.925 g/sq cm Left Femoral Neck: T-Score: -1.4 0.837 g/sq cm Left Total Femur: T-Score: -1.0 Right Femoral Neck: T-Score: -2.1 0.749 g/sq cm Right Total Femur: T-Score: -1.6 IMPRESSION: This is a summary page. Please refer to the complete detailed report found in the Imaging Section of the [facility] EMR. Osteopenic BMD. Lumbar Spine: T-Score: -2.1 Left Femoral Neck: T-Score: -1.4 Left Total Femur: T-Score: -1.0 Right Femoral Neck: T-Score: -2.1 Right Total Femur: T-Score: -1.6 Comments: None. Statistical change: No prior exam is available. FRAX FRACTURE RISK ASSESSMENT: (Only valid Between 40-89 Years Of Age) Risk factors: None. 10 Year Probability Of Fracture Major Osteoporotic: 9.3 % Hip: 1.2 % Comparison population: [place], Race: White A major osteoporotic fracture is defined as a fracture of the spine, forearm, hip or shoulder. Definitions: Normal: T-score above -1.0 Osteopenia T-score less than -1.0 and above -2.5 Osteoporosis: T-score <= -2.5 Follow-up Recommendations: Patients without high risk factors for osteoporosis T-score -1.0 to -1.5 - Consider repeat BMD in 5-10 years T-score -1.5 to - 2.0 - Consider repeat BMD in 3-5 years T-score -2.0 to - 2.5 - Consider repeat BMD every 2 years Patients on treatment for osteoporosis 1-2 years after initiation of treatment and every 2 years thereafter Dictated by Dr. Sampson Santiago MD DICTATION LOCATION: 1 Leslie Villa MD DIAGNOSTIC IMAGING ORDERABLES F inal Result from Last 3 Months or Most Recently Relevant to Health Maintenance Insurance [facility] [id number] [address] [id number] Advance Directives For more information, please contact: [phone] * Full Code (Latest Code Status on File) Date Activated Date Inactivated Comments 08/19/2016 7:50 AM 08/19/2016 12:18 PM * Full Code Date Activated Date Inactivated Comments 05/08/2016 11:51 AM 05/08/2016 5:08 PM * Full Code Date Activated Date Inactivated Comments 05/08/2016 7:21 AM 05/08/2016 11:51 AM
--- OUTSIDE RECORDS SUMMARY | 2024-11-26 12:34 | XMS_ITS ---
Author Organization [facility] Address [address] 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 Past Treatment and Therapy Plans No past plan information found. Lifetime Dose Tracking * Chemical Lifetime Dose Automatic Entry Manual Entr y Effective Dose 21.5 mSv 21.5 mSv 0 mSv Total DLP 1,154 DLP 1,154 DLP 0 DLP CTDIvol Max 27.1 mGy 27.1 mGy 0 mGy CTDIvol Min 16 mGy 16 mGy 0 mGy Resolved Problems Problem Noted Date Diagnosed Date Resolved Date B-cell lymphoma 04/30/2016 06/30/2016
--- OUTSIDE RECORDS SUMMARY | 2024-11-26 12:34 | XMS_ITS | Referral Summary ---
Author Organization [facility] Address [address] [place] [address] Care Team Providers Care Senior Account Director Name Role Phone Megan Bennett DO Primary Care Provider [phone]- [phone] Encounters Date Type Department Care Team Description 11/11/2024 10:00 AM AUTOMATIC SILK SCREEN PRINTER - 11/11/2024 11:59 PM [facility] Hospital Encounter [facility] Breast [facility] ([facility]) [address] [place] [phone] Abnormality of left breast on screening mammography Discharge Disposition: Discharge to home or self care 10/19/2024 9:23 AM AUTOMATIC SILK SCREEN PRINTER - 10/19/2024 11:59 PM [facility] Hospital Encounter [facility] ([facility]) [address] [place] [phone] Screening mammogram, encounter for Discharge Disposition: Discharge to home or self care from Last 3 Months Allergies Active Allergy Reactions Criticality Noted Date Comments Sulfa (Sulfonamide Antibiotics) Rash,Other (See comments) Low 11/05/2023 Reaction: Rash, Sulfanilamide Rash Reaction: Rash, Medications azaTHIOprine (IMURAN) 50 mg tablet TAKE 1 TABLET BY MOUTH DAILY IN THE MORNING AND 2 TABLETS DAILY IN THE EVENING 1 Active aspirin 81 mg enteric coated tablet Take 1 tablet (81 mg total) by mouth daily Active ibandronate (BONIVA) 150 mg tablet TAKE 1 TABLET BY MOUTH MONTHLY 2 Active meloxicam (MOBIC) 15 mg tablet Take 1 tablet (15 mg total) by mouth daily 4 Active lnshumti-zkig-x in-folic acid 18-0.4 mg tablet Take 1 tablet by mouth daily Active calcium citrate-vitamin D2 250 mg-2.5 mcg (100 unit) per tablet Take 1 tablet by mouth 2 (two) times a day Active ferrous sulfate ER 324 mg (65 mg iron) EC tabletIndicatio ns:Iron Deficiency Anemia Take 65 mg by mouth daily with breakfast Active Active Problems Problem Noted Date Diagnosed Date Varicose veins of leg with pain, bilateral 12/30 Leg pain, bilateral 08/15/2021 Assessment & Plan (11/28/2021 10:53 AM CDT): Have recommended conservative measures. Overall patient's symptoms are better does not have symptomatic varicose veins. No surgical recommendations at this time. Continue knee-high compression therapy exercise follow-up with me on a p.r.n. basis. Assessment & Plan (08/15/2021 2:56 PM AUTOMATIC SILK SCREEN PRINTER): Impression: Patient complains of bilateral medial lower extremity pain. She had an outside venous duplex done which was negative for DVTs. Patient does have a history of a thrombophlebitis to the right lower extremity in 2011. Patient does not utilize compression stockings at this time. Plan: Recommend wearing compression stockings 20 30 mmHg. Patient to follow-up in 3 months for re-evaluation with venous reflux. 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 Problem 04/05/2016 Sarcoidosis 06/20/2014 Overview (12/12/2016): Sarcoidosis Lymph node sarcoidosis 01/22/2014 Overview (12/12/2016): Lymph node sarcoidosis Immunizations Immunization Administration Dates Next Due Influenza, Quadrivalent, Spl it, Preservative Free, Intramuscular 06/21/2019 Influenza, Trivalent, IM (MDV) 9,06/30/2018,07/01/2017,06/04 Tdap 08/13/2018 ZOSTER Recombinant 06/21/2019,01/21/2019 Social History Tobacco Use Types Packs/Day Years Used Date Smoking Tobacco: Former Smokeless Tobacco: Never Alcohol Use Standard Drinks/Week Comments Yes 0 (1 standard drink = 0.6 oz pur e alcohol) Comments Unknown Sex and Gender Information Value Date Recorded Sex Assigned at Not on file Legal Sex Female 2:02 AM AUTOMATIC SILK SCREEN PRINTER Gender Identity Not on file Sexual Orientation Not on file Last Filed Vital Signs Vital Sign Reading Time Taken Comments Blood Pressure 119/71 08/15/2021 12:57 PM AUTOMATIC SILK SCREEN PRINTER Pulse 79 08/15/2021 12:57 PM AUTOMATIC SILK SCREEN PRINTER Temperature - - Respiratory Rate 17 07/06/2021 12:12 PM CDT Oxygen Saturation - - Inhaled Oxygen Concentration - - Weight 73.5 kg (162 lb) 12/19/2023 12:22 PM CDT Height 154.9 cm (5' 1 ) 11/21/2021 2:05 PM CDT Body Mass Index 30.61 11/21/2021 2:05 PM CDT Plan of Treatment Not on file Procedures Procedure Name Priority Date/Time Associated Diagnosis Comments DIAGNOSTIC MAMMOGRAM LEFT W YOUSIF Routine 11/11/2024 10:21 AM AUTOMATIC SILK SCREEN PRINTER Abnormality of left breast on screening mammography SCREENING MAMMOGRAM BILATERAL W YOUSIF Schedule Routine, Read Routine (OP Routine) 10/19/2024 9:48 AM AUTOMATIC SILK SCREEN PRINTER Screening mammogram, encounter for from Last 3 Months Results * Diagnostic Mammogram Left W Yousif (11/11/2024 10:21 AM AUTOMATIC SILK SCREEN PRINTER) Anatomical Region Laterality Modality Breast Left Mammography 11/11/2024 10:3 8 AM AUTOMATIC SILK SCREEN PRINTER Impressions 11/11/2024 2:19 PM AUTOMATIC SILK SCREEN PRINTER No evidence of malignancy in the LEFT breast. Finding on screening mammogram reflected superimposition of normal breast tissue. OVERALL FINAL ASSESSMENT: BI-RADS Category 1: Negative. RECOMMENDATION: Annual screening mammography is recommended. Dr. West discussed the above findings and recommendations with the patient, who expressed her understanding of the management plan. Dictated by: Steph West M.D. The radiology attending physician has personally reviewed this study, and had reviewed and/or edited this written report and agrees with it. Electronically signed by: Leeann Yoon M.D. Narrative 11/11/2024 2:19 PM AUTOMATIC SILK SCREEN PRINTER EXAMINATION: LEFT UNILATERAL DIGITAL DIAGNOSTIC MAMMOGRAM AND DIGITAL BREAST TOMOSYNTHESIS HISTORY: 64-year-old woman presents as a callback from screening mammogram for a LEFT breast focal asymmetry. COMPARISON: Multiple prior mammograms which date back to 04/05/2015, the most recent on 10/19/2024. TECHNIQUE: Full field digital mammographic views of the LEFT breast were performed, including computer aided detection (CAD) and digital breast tomosynthesis (DBT). BREAST PARENCHYMAL COMPOSITION: There are scattered areas of fibroglandular density. MAMMOGRAM FINDINGS: Additional views of the LEFT breast, including spot compression views, do not demonstrate a persistent abnormality in the location of the questioned focal asymmetry. There is no suspicious mass, architectural distortion, or grouped microcalcifications. Procedure Note Leeann Yoon MD - 11/11/2024 EXAMINATION: LEFT UNILATERAL DIGITAL DIAGNOSTIC MAMMOGRAM AND DIGITAL BREAST TOMOSYNTHESIS HISTORY: 64-year-old woman presents as a callback from screening mammogram for a LEFT breast focal asymmetry. COMPARISON: Multiple prior mammograms which date back to 04/05/2015, the most recent on 10/19/2024. TECHNIQUE: Full field digital mammographic views of the LEFT breast were performed, including computer aided detection (CAD) and digital breast tomosynthesis (DBT). BREAST PARENCHYMAL COMPOSITION: There are scattered areas of fibroglandular density. MAMMOGRAM FINDINGS: Additional views of the LEFT breast, including spot compression views, do not demonstrate a persistent abnormality in the location of the questioned focal asymmetry. There is no suspicious mass, architectural distortion, or grouped microcalcifications. IMPRESSION: No evidence of malignancy in the LEFT breast. Finding on screening mammogram reflected superimposition of normal breast tissue. OVERALL FINAL ASSESSMENT: BI-RADS Category 1: Negative. RECOMMENDATION: Annual screening mammography is recommended. Dr. West discussed the above findings and recommendations with the patient, who expressed her understanding of the management plan. Dictated by: Steph West M.D. The radiology attending physician has personally reviewed this study, and had reviewed and/or edited this written report and agrees with it. Electronically signed by: Leeann Yoon M.D. Meganadrienne Sutherlandlizpollo [facility] MAMMO PROCEDURES Final Result * Screening Mammogram Bilateral W Yousif (10/19/2024 9:48 AM AUTOMATIC SILK SCREEN PRINTER) Anatomical Region Laterality Modality Breast Bilateral Mammography Narrative 10/19/2024 4:39 PM AUTOMATIC SILK SCREEN PRINTER Mammogram Technique: Bilateral Digital Breast Tomosynthesis, Bilateral C-view 2D Screening mammogram. Views obtained: bilateral craniocaudal and bilateral mediolateral oblique. Computer Aided Detection was performed. Mammogram Findings: The present examination has been compared to prior imaging studies performed at [facility] on 06/03/2019, 06/15/2020, 05/23/2021, 09/17/2022 and 10/08/2023. There are scattered areas of fibroglandular density. There is a focal asymmetry in the upper outer quadrant of the left breast. There is no suspicious abnormality in the right breast. Impression: Focal asymmetry in the left breast requires additional evaluation. Diagnostic mammogram and possible ultrasound of the left breast are recommended at this time. OVERALL FINAL ASSESSMENT: BI-RADS CATEGORY 0: Incomplete: Need additional imaging evaluation. Procedure Note Kurt Callejas MD - 10/19/2024 Mammogram Technique: Bilateral Digital Breast Tomosynthesis, Bilateral C-view 2D Screening mammogram. Views obtained: bilateral craniocaudal and bilateral mediolateral oblique. Computer Aided Detection was performed. Mammogram Findings: The present examination has been compared to prior imaging studies performed at [facility] on 06/03/2019, 06/15/2020,05/23/2021, 09/17/2022 and 10/08/2023. There are scattered areas of fibroglandular density. There is a focal asymmetry in the upper outer quadrant of the leftbreast. There is no suspicious abnormality in the right breast. Impression: Focal asymmetry in the left breast requires additional evaluation. Diagnostic mammogram and possible ultrasound of the left breast are recommended at this time. OVERALL FINAL ASSESSMENT: BI-RADS CATEGORY 0: Incomplete: Need additional imaging evaluation. us Self Screening Mammogram IMG MAMMO PROCEDURES Fi nal Result from Last 3 Months Insurance MEDICARE ADVANTAGE MEDICARE ADVANTAGE CHOICE PLUS [facility] MEDICARE ADVANTAGE Care Teams Senior Account Director Relationship Specialty Start Date End Date Megan Bennett DO [address] [place] [address] DR ESQUIVEL [address] [place] [id number] PCP - General Family Medicine 09/30/23
--- OUTSIDE RECORDS SUMMARY | 2024-11-26 12:34 | XMS_ITS | Clinical Summary ---
Author Organization [facility] Address [address] [place] [address] Care Team Providers Care Chute Builder Name Role Phone Megan Bennett DO Primary Care Provider +1- [phone] Allergies Active Allergy Reactions Criticality Noted Date [...] mg total) by mouth daily 4 Active ejbnjgdt-ibcm-a in-folic acid 18-0.4 mg tablet Take 1 [...] basis. 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 Encounters Date Type Department Care Team Description 11/11/2024 10:00 AM NUCLEAR CONTROL ROOM OPERATOR - 11/11/2024 11:59 PM [facility] Hospital Encounter [facility] Breast [facility] ([facility]) [address] [place] [phone] Abnormality of left breast on screening mammography Discharge Disposition: Discharge to home or self care 10/19/2024 9:23 AM NUCLEAR CONTROL ROOM OPERATOR - 10/19/2024 11:59 PM [facility] Hospital Encounter [facility] Breast Imaging [facility] ([facility]) [address] [place] [phone] Screening mammogram, encounter for Discharge Disposition: Discharge to home or self care from Last 3 Months Immunizations Immunization Administration Dates Next Due Influenza, Quadrivalent, Spl it, Preservative Free, Intramuscular 06/21/2019 Influenza, Trivalent, IM (MDV) 9,06/30/2018,07/01/2017,06/04 Tdap 08/13/2018 ZOSTER Recombinant 06/21/2019,01/21/2019 Surgical History Surgery Date Site/Laterality Comments OTHER SURGICAL HISTORY trigger finger both hands, index OTHER SURGICAL HISTORY carpalt unnel release right OTHER SURGICAL HISTORY blood clots 2002 CARPAL TUNNEL RELEASE Carpal tunnel release Medical History Medical History Date Comments Hx Other Medical 01/25/2010 Trigger finger- right; Comments: DAVID 06/20/2014 - Hx Other Medical 06/2012 Trigger finger- left; Comments: DAVID 06/20/2014 - Hx Other Medical DVT; Comments: SES 06/20/2014 - Allergic rhinitis Ear problems HL (hearing loss) Nasal drainage Nasal congestion Family History Medical History Relation Name Comments Hypertension Father Hypertension; Lung cancer Mother Cancer, lung; Cancer Other Family history of Cancer -; Relation Name Status Comments Father Mother Other Social History Tobacco Use Types Packs/Day Years Used Date Smoking Tobacco: Former Smokeless Tobacco: Never Alcohol Use Standard Drinks/Week Comments Yes 0 (1 standard drink = 0.6 oz pur e alcohol) Comments Unknown Sex and Gender Information Value Date Recorded Sex Assigned at Not on file Legal Sex Female 2:02 AM NUCLEAR CONTROL ROOM OPERATOR Gender Identity Not on file Sexual Orientation Not on file Obstetrics History Last Filed Vital Signs Vital Sign Reading Time Taken Comments Blood Pressure 119/71 08/15/2021 12:57 PM NUCLEAR CONTROL ROOM OPERATOR Pulse 79 08/15/2021 12:57 PM NUCLEAR CONTROL ROOM OPERATOR Temperature - - Respiratory Rate 17 07/06/2021 12:12 PM CDT Oxygen Saturation - - Inhaled Oxygen Concentration - - Weight 73.5 kg (162 lb) 12/19/2023 12:22 PM CDT Height 154.9 cm (5' 1 ) 11/21/2021 2:05 PM CDT Body Mass Index 30.61 11/21/2021 2:05 PM CDT Plan of Treatment Health Maintenance Due Date Last Done Comments Colon Cancer Screening-Colonoscopy 1958 Depression Screening 1958 Fall Risk Assessment 1960 Hepatitis C Screening 1960 Hepatitis B Screening 1976 Osteoporosis Screening-Bone Density Scan 02/15/2021 02/15/2019 Well Visit 65+ 2023 Influenza Vaccine (#1) 2024 3, 06/21/2019, 06/08/2019, Additional history exists Pneumococcal vaccine 65+ (2 of 2 - PCV) 08/08/2024 08/08/2023 Breast Cancer Screening-Mammogram 10/19/2025 10/19/2024, 10/08/2023, 10/08/2023, Additional history exists DTaP/Tdap/Td Vaccine (2 - Td or Tdap) 08/13/2028 08/13/2018 Zoster Vaccine Completed 06/21/2019, 01/21/2019 Procedures Procedure Name Priority Date/Time Associated Diagnosis Comments DIAGNOSTIC MAMMOGRAM LEFT W YOUSIF Routine 11/11/2024 10:21 AM NUCLEAR CONTROL ROOM OPERATOR Abnormality of left breast on screening mammography SCREENING MAMMOGRAM BILATERAL W YOUSIF Schedule Routine, Read Routine (OP Routine) 10/19/2024 9:48 AM NUCLEAR CONTROL ROOM OPERATOR Screening mammogram, encounter for from Last 3 Months Results * Diagnostic Mammogram Left W Yousif (11/11/2024 10:21 AM NUCLEAR CONTROL ROOM OPERATOR) Anatomical Region Laterality Modality Breast Left Mammography 11/11/2024 10:3 8 AM NUCLEAR CONTROL ROOM OPERATOR Impressions 11/11/2024 2:19 PM NUCLEAR CONTROL ROOM OPERATOR No evidence of malignancy in the LEFT breast. Finding on screening mammogram reflected superimposition of normal breast tissue. OVERALL FINAL ASSESSMENT: BI-RADS Category 1: Negative. RECOMMENDATION: Annual screening mammography is recommended. Dr. eWst discussed the above findings and recommendations with the patient, who expressed her understanding of the management plan. Dictated by: Steph Wets M.D. The radiology attending physician has personally reviewed this study, and had reviewed and/or edited this written report and agrees with it. Electronically signed by: Leeann Yoon M.D. Narrative 11/11/2024 2:19 PM NUCLEAR CONTROL ROOM OPERATOR EXAMINATION: LEFT UNILATERAL DIGITAL DIAGNOSTIC MAMMOGRAM AND [...] it. Electronically signed by: Leeann Yoon M.D. Megan Bennett DO [facility] MAMMO PROCEDURES Final Result * Screening Mammogram Bilateral W Yousif (10/19/2024 9:48 AM NUCLEAR CONTROL ROOM OPERATOR) Anatomical Region Laterality Modality Breast Bilateral Mammography Narrative 10/19/2024 4:39 PM NUCLEAR CONTROL ROOM OPERATOR Mammogram Technique: Bilateral Digital Breast Tomosynthesis, Bilateral C-view 2D Screening mammogram. Views obtained: bilateral craniocaudal and bilateral mediolateral oblique. Computer Aided Detection was performed. Mammogram Findings: The present examination has been compared to prior imaging studies performed at [facility] on 06/03/2019, 06/15/2020, 05/23/2021, 09/17/2022 and 10/08/2023. [...] compared to prior imaging studies performed at [facility] on 06/03/2019, 06/15/2020,05/23/2021, 09/17/2022 and 10/08/2023. There [...] nal Result from Last 3 Months Insurance [facility] MEDICARE ADVANTAGE [facility] MEDICARE ADVANTAGE [facility] CHOICE PLUS [facility] MEDICARE ADVANTAGE Care Teams Chute Builder Relationship Specialty Start Date End Date Megan Bennett DO [facility] [address] ESQU[address] [place] [id number] PCP - General Family Medicine 09/30/23
[2024-11-26 13:34] LABS: Albumin Level 4.2 g/dL (3.5-5.1); Calcium 9.6 mg/dL (8.4-10.2); Estimated Glomerular Filt Rate > 60
== END 2024-11-26 11:18 | disposition home or self-care (01) ==
LOC: ANHLAB 11:18
PROVIDERS: Visit Provider Internal Medicine Hematology & Oncology
DX: M81.0 Age-related osteoporosis without current pathological fracture (principal)
CPT/HCPCS: 36415; 82040; 82310; 82565